=== PATIENT | female | born 1990 | race Caucasian/White ===

== ENCOUNTER 2019-04-05 07:46 | Emergency (ER) | payer MEDICAID, SELFPAY ==
[2019-04-05 07:55] VITALS: BP 128/80; PULSE 82; RESP 20; TEMP 36.8; O2SAT 99
--- NOTE | 2019-04-05 08:05 | W.ED.GENAD ---
Discharge Plan Disposition Patient Disposition: HOME Condition: Improving Discharge Details Chief Complaint: Nausea/Vomit/Diar Clinical Impression: Nausea vomiting and diarrhea Primary Care Provider: Jose Antonio Tovar ED Provider: Adeel Avila Home Meds and New Rx's Prescriptions: New promethazine 12.5 mg tablet 12.5 mg PO Q6H PRN (Reason: nausea and vomiting) Qty: 10 RF: 0 Continued medroxyprogesterone [Depo-Provera] 150 MG/1 ML suspension 150 mg IM Q 12 WEEKS Qty: 1 RF: 0 methadone 10 MG/ML concentrate 65 mg PO DAILY RF: 0 Discharge Instructions Instructions: Acute Nausea and Vomiting (ED) Additional Instructions: Continue to advance her diet as tolerated and stay well-hydrated. Return to the emergency department for any new or worsening symptoms otherwise follow-up with your primary care provider for reassessment as needed Referrals: Jose Antonio Tovar [Primary Care Provider] - (As needed for reassessment) Discharge Data Discharge Date/Time-TO BE ENTERED AT DEPARTURE: 04/05/19 10:31 Medical Decision Making <Adeel Avila NP - Last Filed: 04/07/19 16:40> Patient presenting to the emergency department for chief complaint of nausea vomiting diarrhea. Patient states that this all started around 3 AM. Patient attempted to take her methadone dose this morning and vomited it up due to her symptoms. Patient is severely anxious hyperventilating and agitated due to some extremity numbness and tingling that started with the lower extremities but through my examination and assessment she started stating her upper tremors were starting to feel the same. There is no focal motor deficits or neurological dysfunction noted, abdomen is soft with mild tenderness to the left lower quadrant, no CVA tenderness, normal active bowel sounds and otherwise unremarkable exam. Patient denies any other missed doses of methadone or additional doses and denies any other illicit medications, denies any sick contacts, denies any possible spoiled food. Plan to check labs give fluids and Phenergan. At this time given there is no peritoneal findings, abdomen is soft with only minimal tenderness left lower quadrant, I do not plan on CT imaging at this time but it is considered and will reassess abdomen prior to discharge. Pending results patient continuing to have nausea and dry heaving after Phenergan so IV Haldol was ordered and EKG ordered given patient is already on methadone to ensure no QT prolongation. Review of labs show a nonspecific leukocytosis, mildly elevated hemoglobin, normal lipase, mildly low magnesium, and slightly elevated anion gap. Patient was reassessed after 1.5 L of normal saline and Haldol. Patient states 100% improvement, no more nausea vomiting, and abdomen reassessed and showed no abdominal tenderness, normal active bowel sounds, completely benign exam. Given reassuring reassessment I do not feel that any imaging or further work-up is required. Patient was p.o. challenged and able to tolerate p.o. intake of oral magnesium, fluids, and crackers. Given this I feel that patient is able to be safely discharged but close return precautions were discussed. Patient to follow-up with primary care as needed. After discussion of diagnosis and plan of care patient has no further needs, questions, or concerns and states clear understanding to return to the emergency department for any worsening symptoms. <Km Armstrong DO - Last Filed: 04/05/19 08:44> EK Rate 62, intervals normal, sinus rhythm, inverted T wave in V1, no Q waves, no ST elevations or depressions. HPI <Adeel Avila NP - Last Filed: 04/07/19 16:40> General Mode of arrival: wheelchair. Date/Time Provider Initiated Documentation: 04/05/19 07:52. Limitations to Documentation: no limitations. Information obtained by: patient and RN notes reviewed. History of Present Illness 29 year old F presents to the emergency department with the chief complaint of Nausea vomiting diarrhea, extremity numbness and tingling, described as severe, with intensity rated at 8. Quality is described as other (Tingling), and is localized to the upper extremity and lower extremity. Patient started experiencing this hour(s) (5) and it has been constant. No relieving factors improve symptom(s), No exacerbating factors reported . Patient notes no other symptoms.. Patient did receive the following treatments prior to arrival, none Related Data Home Medications Medication Instructions Recorded Confirmed methadone 65 mg PO DAILY 06/13/14 04/05/19 medroxyprogesterone [Depo-Provera] 150 mg IM Q 12 WEEKS #1 vial 05/04/17 promethazine 12.5 mg PO Q6H PRN #10 tab 04/05/19 Previous Rx's Medication Instructions Recorded promethazine 12.5 mg PO Q6H PRN #10 tab 04/05/19 Allergies Allergy/AdvReac Type Severity Reaction Status Date / Time No Known Drug Allergies Allergy Unverified 05/22/17 15:52 General Stated Complaint: Nausea/Vomit/Diar LISA: 3 Review of Systems <Adeel Avila NP - Last Filed: 04/07/19 16:40> Constitutional Denies chills, Denies fever(s) and Reports poor appetite Cardiovascular Denies chest pain and Denies dyspnea Respiratory Denies cough and Denies dyspnea Gastrointestinal Reports as per HPI, Reports abdominal pain, Denies melena, Denies change in bowel habits, Denies constipation, Denies diarrhea, Reports nausea and Reports vomiting Genitourinary Denies hematuria, Denies urinary incontinence, Denies urinary hesitancy and Denies urinary urgency Integumentary/Breasts Denies rash PFSH <Adeel Avila NP - Last Filed: 04/07/19 16:40> Medical History Anxiety disorder Asthma Depression Genital herpes Migraine Opioid abuse Surgical History Appendectomy Tonsillectomy Family History Mother Hyperlipidemia Social History Smoking/Tobacco Use Status: Current every day Alcohol Intake: never Drug use: Current Sobriety Substance use type: former substance user Details: on methadone Do you feel safe at home: Yes Do you feel safe in your relationship?: Yes Exam <Adeel Avila NP - Last Filed: 04/07/19 16:40> Const General: cooperative and anxious Orientation: alert, awake and oriented x3 Resp Effort & Inspection: normal respiratory effort and able to speak in complete sentences Auscultation: clear to auscultation bilaterally Cardio Rate: regular rate Rhythm: regular rhythm Heart Sounds: S1 normal and S2 normal GI Palpation: soft, no hepatosplenomegaly, not firm, no guarding, no masses, no pulsatile masses, not rigid, no splenomegaly and tender (mild) in the LLQ Auscultation: normal bowel sounds Back/Spine/Pelvis Back: no CVA tenderness Neuro General: alert, awake, oriented x3, gait normal, tone normal, moves all extremities and no focal motor deficits Motor: muscle tone normal throughout Course <Adeel Avila, MULTI SENSOR OPERATOR - Last Filed: 04/07/19 16:40> Vital Signs Temperature 36.8 C 04/05/19 07:55 Pulse 82 04/05/19 07:55 Respiratory Rate 20 04/05/19 07:55 Blood Pressure 128/80 04/05/19 07:55 Pulse Oximetry 99 04/05/19 07:55 Temperature 36.8 C 04/05/19 07:55 Temperature Source Temporal Artery Scan 04/05/19 07:55 Pulse 82 04/05/19 07:55 Respiratory Rate 20 04/05/19 07:55 Respiratory Effort Non-Labored 04/05/19 07:55 Blood Pressure 128/80 04/05/19 07:55 Blood Pressure Position Sitting 04/05/19 07:55 Pulse Oximetry 99 04/05/19 07:55 Oxygen Delivery Method Room Air 04/05/19 07:55 Oxygen Flow Rate 0 04/05/19 07:55 End Tidal Co2 7 04/05/19 07:55
[2019-04-05] MEDS: Normal Saline 1,000 ML 1000 ML IV ×2 (08:14→09:39)
[2019-04-05] MEDS: Normal Saline Flush 10 ML SYR IVP (08:15)
[2019-04-05 08:26] LABS: Abs Immature Grans 0.04 k/cumm (0.0-0.09); Absolute Monocyte Count 0.73 k/cumm (0.11-0.7); Basophils % 0.1; Eosinophils % 0.3; HCT 44.9 % (36.0-46.0); HGB 15.7 g/dL (12.0-15.5); Immature Grans % 0.3; Lymphocytes % 15.5; Mean Corpuscular Hemoglobin 30.5 pg (27.0-33.0); Mean Corpuscular Volume 87.2 fL (80-95); Mean Platelet Volume 9.7 fL (8.0-11.0); Monocytes % 4.7; Neutrophils % 79.1; Platelet Count 282 x1000/uL (130-400); RBC 5.15 m/cumm (4.00-5.20); RBC Distribution Width 12.8 % (11.7-14.6); White Blood Cell Count 15.45 k/cumm (4.4-10.8)
[2019-04-05 08:28] LABS: Absolute Basophil Count 0.02 k/cumm (0.0-0.2); Absolute Eosinophil Count 0.05 k/cumm (0.0-0.7); Absolute Lymphocyte Count 2.39 k/cumm (1.2-3.4); Absolute Neutrophil Count 12.22 k/cumm (1.2-6.7)
[2019-04-05 08:31] LABS: ALT 26 U/L (12-78); AST 17 U/L (15-37); Albumin 3.9 g/dL (3.4-5.0); Alkaline Phosphatase 92 U/L (46-116); Anion Gap 12.3 mmol/L (3-11); BUN 7 mg/dL (7-18); Bilirubin, Total 0.5 mg/dL (0.2-1.0); CO2 22.7 mmol/L (21.0-32.0); CREATININE 0.98 mg/dL (0.55-1.02); Calcium 9.5 mg/dL (8.5-10.1); Chloride 102 mmol/L (98-107); Glucose 123 mg/dL (70-100); Lipase 122 U/L (73-393); Magnesium 1.6 mg/dL (1.8-2.4); Potassium 3.8 mmol/L (3.5-5.1); Sodium 137 mmol/L (136-145); Total Protein 7.8 g/dL (6.4-8.2)
[2019-04-05] MEDS: Haloperidol 5 MG/ML VIAL IM/IV (08:45)
[2019-04-05 08:51] LABS: Bilirubin Negative (Negative); Blood Negative (Negative); Clarity Clear; Glucose Negative (Negative); Ketones 40 mg/dL (Negative); Leukocyte Esterase Negative (Negative); Nitrite Negative (Negative); Specific Gravity 1.015 (1.005-1.025); Urobilinogen 0.2 EU/dL (Up TO 0.2); pH >= 9.0 (5-8)
[2019-04-05 08:57] LABS: Bacteria Few HPF (Negative); C & S Indicated? No; Casts Negative LPF (Negative); Crystals Few Amorphous HPF (Negative); Epithelial Cells Many HPF (Negative); Mucus Moderate (Negative); RBC 0-2 (0-2); WBC 0-2 HPF (0-5)
--- NOTE | 2019-04-05 09:40 | NUR.NOTE ---
Nursing Note: Patient states she feels much better, inquiring how much longer and if she needs to finish all of the fluids, encouraged to do so.
[2019-04-05] MEDS: Magnesium Oxide 400 MG TAB PO (10:02)
[2019-04-05 10:31] VITALS: BP 128/80; PULSE 82; RESP 20; TEMP 36.8; O2SAT 99
== END 2019-04-05 10:31 | disposition home or self-care (01) ==
PROVIDERS: Emergency Provider Nurse Practitioner Family; PCP Family Medicine
DX: R11.2 Nausea with vomiting, unspecified (principal); R19.7 Diarrhea, unspecified; D72.9 Disorder of white blood cells, unspecified; Z79.891 Long term (current) use of opiate analgesic
CPT/HCPCS: 36415; 80053; 83690; 93005; 96361; 96372; 96374; 99284; 81003; 81015; 83735; 85025; 93010; J1630

== ENCOUNTER 2019-05-20 11:27 | Emergency (ER) | payer MEDICAID, SELFPAY ==
[2019-05-20 11:43] VITALS: BP 138/97; PULSE 78; RESP 18; TEMP 36.6
--- NOTE | 2019-05-20 11:59 | ED.GENADUL_ITS ---
Discharge Plan Disposition Patient Disposition: HOME Condition: Improving Discharge Details Chief Complaint: Nausea/Vomit/Diar Clinical Impression: Nausea and vomiting in Primary Care Provider: Jose Antonio Tovar ED Provider: Florina Cervantes Home Meds and New Rx's Prescriptions: New promethazine 25 mg tablet 25 mg PO QID PRN (Reason: nausea and vomiting) Qty: 14 RF: 0 Continued medroxyprogesterone [Depo-Provera] 150 MG/1 ML suspension 150 mg IM Q 12 WEEKS Qty: 1 RF: 0 methadone 10 MG/ML concentrate 65 mg PO DAILY RF: 0 promethazine 12.5 mg tablet 12.5 mg PO Q6H PRN (Reason: nausea and vomiting) Qty: 10 RF: 0 Discharge Instructions Instructions: (ED), Acute Nausea and Vomiting (ED) Additional Instructions: Encourage hydration. Please take Phenergan as prescribed as needed for nausea or vomiting. Try taking this prior to taking your morning dose of methadone. Please begin a daily vitamin. Please call [facility], number listed below, to schedule first [facility] appointment. If you develop inability to stay hydrated, fever/chills, abdominal pain or other new/worsening symptoms please seek care urgently once again. Referrals: Gregoria Rand MD [ [facility] STAFF PHYSICIAN] - Discharge Data Discharge Date/Time-TO BE ENTERED AT DEPARTURE: 05/20/19 14:00 Medical Decision Making Patient is a 29-year-old female presenting today with chief complaint of opioid withdrawal and nausea/vomiting. She reports that she has had nausea vomiting for the past month. Was seen here 1 month ago at which time she was treated for nausea and vomiting. She reports that today she comes in for increased symptoms over the past 3 days and not allowing her to take her daily methadone. She reports she is been taking her 65 mg p.o. methadone each morning and then shortly after that she has been vomiting. She comes in tremulous, anxious. She is very angry and lashing out at staff. She denies any chest pain, shortness of breath. Has not had any fevers or chills. No recent travel. No recent antibiotics. No known sick contacts. She reports she is on the Depo-Provera shots does not believe that she is . Will obtain labs to evaluate for any electrolyte abnormalities. Plan for UPT. Will give Phenergan and daily methadone dose. We will rehydrate the patient. Denies marijuana usage. Contacted [facility] to let them know of dosing here. They report that patient receives 65mg PO QD Methadone, takes home 1 week at a time. UPT positive. Discussed case with Dr. Sargent who advised that continuing with Methadone and phenergan. Patient received Phenergan and methadone. Is now much more agreeable and pleasant. She seems pleased with the news of her . Has delivered one healthy child historically [facility], would like to receive care with them again. She will contact them to make follow-up appointment later this week. Unknown gestational age at this time. No findings to suggest an ectopic . She was given strict return precautions. I did advise that she take the Phenergan worsening in the morning followed by the methadone once her nausea has been up to subside. All other questions and concerns were addressed and she is in agreement this plan. HPI General Mode of arrival: ambulatory . Date/Time Provider Initiated Documentation: 05/20/19 11:29 . Limitations to Documentation: no limitations . Information obtained by: patient and RN notes reviewed . History of Present Illness 29 year old F presents to the emergency department with the chief complaint of nausea and vomiting, described as similar to prior episodes, with intensity rated at 9 (severe pain to generalized abdomen prior to emesis). Quality is described as aching, and is localized to the abdomen. Patient reports no radiation. Patient started experiencing this day(s) (3) and it has been constant. No relieving factors improve symptom(s), Eating worsens symptoms . Patient notes loss of appetite, malaise, nausea/vomiting and other (tremulous, patient reports 3 days without methadone); denies confusion, chest pain, cough, diaphoresis, fever/chills and headaches. Patient did receive the following treatments prior to arrival, none Related Data Home Medications Medication Instructions Recorded Confirmed methadone 65 mg PO DAILY 06/13/14 05/20/19 medroxyprogesterone [Depo-Provera] 150 mg IM Q 12 WEEKS #1 vial 05/04/17 05/20/19 promethazine 12.5 mg PO Q6H PRN #10 tab 04/05/19 promethazine 25 mg PO QID PRN #14 tab 05/20/19 Previous Rx's Medication Instructions Recorded promethazine 12.5 mg PO Q6H PRN #10 tab 04/05/19 promethazine 25 mg PO QID PRN #14 tab 05/20/19 Allergies Allergy/AdvReac Type Severity Reaction Status Date / Time No Known Drug Allergies Allergy Unverified 05/20/19 11:46 General Stated Complaint: Nausea/Vomit/Diar LISA: 3 Review of Systems Constitutional Reports as per HPI, Denies chills, Reports fatigue, Denies fever(s), Denies headache(s), Reports malaise and Reports poor appetite ENT Denies headache(s) Cardiovascular Reports as per HPI, Denies chest pain, Denies radiating jaw, neck or arm pain, Denies palpitations and Denies dyspnea Respiratory Reports as per HPI, Denies cough, Denies dyspnea and Denies wheezing Gastrointestinal Reports as per HPI, Denies melena, Denies change in bowel habits, Denies change in stool character, Reports nausea and Reports vomiting Genitourinary Reports as per HPI, Reports abnormal menses (reports irregular, received depo shot), Denies abnormal vaginal bleeding, Denies dysuria, Denies flank pain, Denies urinary urgency and Denies vaginal discharge Musculoskeletal Reports as per HPI, Denies back pain, Denies numbness and Denies radiating pain into limb Integumentary/Breasts Reports as per HPI and Denies rash Neurologic Reports as per HPI, Denies headache(s) and Denies numbness Endocrine Reports fatigue and Denies palpitations Allergic/Immunologic Denies wheezing PFSH Medical History Anxiety disorder Asthma Depression Genital herpes Migraine Opioid abuse Surgical History Appendectomy Tonsillectomy Social History Smoking/Tobacco Use Status: Current every day Alcohol Intake: never Drug use: Current Sobriety Substance use type: former substance user Details: on methadone Do you feel safe at home: Yes Do you feel safe in your relationship?: Yes Exam Const General: well developed, No well groomed (disheveled) and acute distress moderate (angry, yelling, shaking, anxious); not respiratory (breathing comfortably, speaking in sentences) Nutritional Appearance: average body habitus and well nourished Orientation: alert and awake [facility] Head: normal to inspection Mouth: moist mucous membranes Resp Effort & Inspection: normal respiratory effort, able to speak in complete sentences and no respiratory distress Auscultation: clear to auscultation bilaterally, no rales, no rhonchi and no wheezes Cardio Rate: regular rate Rhythm: regular rhythm Heart Sounds: S1 normal and S2 normal GI Inspection: normal to inspection and non-distended Palpation: soft, no hepatosplenomegaly, not firm, no guarding, not rigid and nontender Percussion: normal to percussion Auscultation: normal bowel sounds Back/Spine/Pelvis Back: no CVA tenderness Skin General skin exam: no rashes or lesions noted Trauma: no lacerations or abrasions Neuro General: alert and awake Cognition: normal cognition Speech: speech normal Gait: normal gait Extrem General: normal capillary refill, no pedal edema, no calf tenderness and normal gait Psych Appearance: grossly normal and well kempt Mental Status: mental status grossly normal Speech and Movement: speech and movement normal Course Vital Signs Temperature 36.6 C 05/20/19 11:43 Pulse 78 05/20/19 11:43 Respiratory Rate 18 05/20/19 11:43 Blood Pressure 138/97 H 05/20/19 11:43 Temperature 36.6 C 05/20/19 11:43 Temperature Source Skin 05/20/19 11:43 Pulse 78 05/20/19 11:43 Respiratory Rate 18 05/20/19 11:43 Blood Pressure 138/97 H 05/20/19 11:43
--- NOTE | 2019-05-20 12:39 | NUR.NOTE ---
Nursing Note: pt test positive. PA aware
[2019-05-20 12:40] LABS: Abs Immature Grans 0.03 k/cumm (0.0-0.09); Absolute Basophil Count 0.02 k/cumm (0.0-0.2); Absolute Eosinophil Count 0.05 k/cumm (0.0-0.7); Absolute Monocyte Count 1.07 k/cumm (0.11-0.7); Absolute Neutrophil Count 10.96 k/cumm (1.2-6.7); Basophils % 0.1; Eosinophils % 0.3; HCT 43.2 % (36.0-46.0); HGB 15.1 g/dL (12.0-15.5); Immature Grans % 0.2; Lymphocytes % 20.9; Mean Corpuscular Hemoglobin 30.6 pg (27.0-33.0); Mean Corpuscular Volume 87.4 fL (80-95); Mean Platelet Volume 9.8 fL (8.0-11.0); Neutrophils % 71.5; Platelet Count 286 x1000/uL (130-400); RBC 4.94 m/cumm (4.00-5.20); White Blood Cell Count 15.33 k/cumm (4.4-10.8)
[2019-05-20] MEDS: Normal Saline 1,000 ML 1000 ML IV (12:41)
[2019-05-20 12:55] LABS: ALT 25 U/L (12-78); AST 11 U/L (15-37); Alkaline Phosphatase 85 U/L (46-116); Anion Gap 10.3 mmol/L (3-11); BUN 10 mg/dL (7-18); Bilirubin, Total 0.4 mg/dL (0.2-1.0); CO2 25.7 mmol/L (21.0-32.0); CREATININE 0.69 mg/dL (0.55-1.02); Calcium 9.4 mg/dL (8.5-10.1); Chloride 102 mmol/L (98-107); Glucose 101 mg/dL (70-100); Potassium 3.6 mmol/L (3.5-5.1); Sodium 138 mmol/L (136-145); Total Protein 8.2 g/dL (6.4-8.2)
--- NOTE | 2019-05-20 13:04 | NUR.NOTE ---
Nursing Note: phenergan and methadone approved by [facility]
[2019-05-20] MEDS: Methadone Liquid 10 MG/ML 65 MG PO (13:10)
[2019-05-20 13:12] LABS: Bilirubin Negative (Negative); Blood Trace-intact (Negative); Clarity Clear (Clear); Glucose Negative (Negative); Ketones 40 mg/dL (Negative); Leukocyte Esterase Negative (Negative); Nitrite Negative (Negative)
--- NOTE | 2019-05-20 13:13 | NUR.NOTE ---
Nursing Note: pt states that her nausea has improved to a level that she can take her methadone. Pt given methadone and provided yajaira demetria and saltines.
[2019-05-20 13:26] LABS: Bacteria Negative HPF (Negative); C & S Indicated? No/Sq. Contamination; Casts Negative LPF (Negative); Crystals Negative HPF (Negative); Epithelial Cells Many HPF (Negative); Mucus Negative (Negative); Other Cells Negative (Negative); WBC 0-2 HPF (0-5)
== END 2019-05-20 14:00 | disposition home or self-care (01) ==
PROVIDERS: Emergency Provider Physician Assistant; PCP Family Medicine
DX: O21.9 Vomiting of pregnancy, unspecified (principal); Z3A.00 Weeks of gestation of pregnancy not specified; O99.330 Smoking (tobacco) complicating pregnancy, unspecified trimester; O99.320 Drug use complicating pregnancy, unspecified trimester; F11.23 Opioid dependence with withdrawal
CPT/HCPCS: 80053; 96361; 96365; 99284; 81003; 81015; 85025

== ENCOUNTER 2019-06-12 17:23 | Outpatient (REF) | payer MEDICAID, SELFPAY ==
[2019-06-12 17:53] LABS: *AMPHETAMINES SCREEN URINE Negative (Negative); *BARBITURATES SCREEN URINE Negative (Negative); *BENZODIAZEPINES SCREEN URINE Negative (Negative); Cannabinoids THC POSITIVE (Negative); Cocaine Screen,Urine Negative (Negative); METHADONE URINE SCREEN POSITIVE (Negative); OPIATES URINE SCREEN Negative (Negative)
[2019-06-12 18:07] LABS: Tricyclic Antidepressants Negative (Negative)
[2019-06-14 12:59] LABS: Chlamydia Result Negative; GC Result Negative; Specimen Description CERVIX
[2019-06-16 12:30] LABS: Buprenorphine Negative; Norbuprenorphine Negative
== END 2019-06-12 17:43 ==
LOC: LBN 17:23
PROVIDERS: PCP Family Medicine; Visit Provider Advanced Practice Midwife
DX: Z34.91 Encounter for supervision of normal pregnancy, unspecified, first trimester (principal)
CPT/HCPCS: 80307; 87491; 87591; 87086

== ENCOUNTER 2019-06-13 15:54 | Outpatient (CLI) | payer MEDICAID, SELFPAY ==
[2019-06-13 16:14] LABS: Abs Immature Grans 0.03 k/cumm (0.0-0.09); Absolute Eosinophil Count 0.09 k/cumm (0.0-0.7); Absolute Monocyte Count 1.06 k/cumm (0.11-0.7); Basophils % 0.1; Eosinophils % 0.6; HCT 37.6 % (36.0-46.0); Immature Grans % 0.2; Lymphocytes % 21.9; Mean Corp. HGB Concentration 34.6 g/dL (32.0-36.0); Mean Corpuscular Hemoglobin 30.7 pg (27.0-33.0); Mean Corpuscular Volume 88.7 fL (80-95); Mean Platelet Volume 9.7 fL (8.0-11.0); Monocytes % 6.8; Neutrophils % 70.4; Platelet Count 262 x1000/uL (130-400); RBC 4.24 m/cumm (4.00-5.20); RBC Distribution Width 12.7 % (11.7-14.6)
[2019-06-13 16:15] LABS: Absolute Basophil Count 0.02 k/cumm (0.0-0.2); Absolute Lymphocyte Count 3.42 k/cumm (1.2-3.4); Absolute Neutrophil Count 10.98 k/cumm (1.2-6.7)
[2019-06-15 11:13] LABS: HIV-1/2 Ag & Ab Screen Negative (NEGAT)
[2019-06-17 11:16] LABS: Varicella IgG Antibody Positive
[2019-06-17 11:20] LABS: Rubella IgG Ab (UVM) Positive
[2019-06-17 11:23] LABS: Hepatitis B Surface Ag Negative (NEGAT)
[2019-06-17 11:35] LABS: Hepatitis C Ab w Rflx HCV PCR Negative (NEGAT)
[2019-06-17 11:48] LABS: Syphilis Serology (RPR) Negative (Negative)
== END 2019-06-13 16:14 ==
PROVIDERS: PCP Family Medicine; Visit Provider Advanced Practice Midwife
DX: Z34.91 Encounter for supervision of normal pregnancy, unspecified, first trimester (principal); Z11.4 Encounter for screening for human immunodeficiency virus [HIV]; Z11.59 Encounter for screening for other viral diseases; Z01.84 Encounter for antibody response examination
CPT/HCPCS: 36415; 80055; 86787; 86803; 86850; 86900; 86901; 87340; 87389; 86592; 86762

== ENCOUNTER 2019-06-20 07:33 | Emergency (ER) | payer MEDICAID, SELFPAY ==
[2019-06-20 07:40] VITALS: BP 131/67; PULSE 92; RESP 18; TEMP 36.6; O2SAT 98
--- NOTE | 2019-06-20 07:52 | ED.GENADUL_ITS ---
Discharge Plan Disposition Patient Disposition: HOME Condition: Stable Discharge Details Chief Complaint: Nausea/Vomit/Diar Clinical Impression: Hyperemesis gravidarum Primary Care Provider: Qing Wu ED Provider: Jakob Jack Home Meds and New Rx's Prescriptions: New ondansetron 8 mg tablet,disintegrating 8 mg PO Q8H PRN (Reason: nausea and vomiting) Qty: 30 RF: 0 Continued PrePlus 27 mg iron- 1 mg tablet 1 tab PO DAILY Qty: 90 RF: 6 methadone 10 MG/ML concentrate 65 mg PO DAILY RF: 0 Discontinued ondansetron HCl [Zofran] 8 mg tablet 8 mg PO Q8H Qty: 21 RF: 6 Discharge Instructions Instructions: Hyperemesis Gravidarum (ED) Additional Instructions: follow up with your obgyn provider within 1-2 weeks if you have persistent vomit or severe abdominal pain return to the emergency department Medical Decision Making 29 yo female at 11 weeks per pt comes in with n/v since yesterday and has been having issues with n/v throughout this . Has zofran at home prescribed by her OBGYN per pt but not dissolvable so has thrown up after taking it immediately. Denies fevers, abd pain. She is in no distress on exam speaking in full sentences. She has no abdominal tenderness on exam so doubt surgical pathology at this time. I suspect hyperemesis gravdiarum. Will give IVF and IV ondansetron and reassess. pt now tolerating po and feels much better, will d/c with dissolvable zofran given degree of symptoms and return precautions given Differential Diagnosis hyperemesis gravidarum, gastroenteritis Medical Records Medical records reviewed: Yes I reviewed the patient's medical records. Lab Data Lab results reviewed: Yes I reviewed the patient's lab results. HPI General Mode of arrival: ambulatory . Date/Time Provider Initiated Documentation: 06/20/19 07:48 . Limitations to Documentation: no limitations . Information obtained by: patient . History of Present Illness 29 year old F presents to the emergency department with the chief complaint of nausea and vomit, described as moderate, Patient started experiencing this day(s) (1) and it has been constant. No relieving factors improve symptom(s), No exacerbating factors reported . Patient notes no other symptoms.. Patient did receive the following treatments prior to arrival, none Related Data Home Medications Medication Instructions Recorded Confirmed methadone 65 mg PO DAILY 06/13/14 06/20/19 vitamin with calcium 1 tab PO DAILY #90 tab 05/21/19 06/20/19 no.72-iron 27 mg-folic acid 1 mg tablet ondansetron 8 mg PO Q8H PRN #30 tab 06/20/19 Previous Rx's Medication Instructions Recorded vitamin with calcium 1 tab PO DAILY #90 tab 05/21/19 no.72-iron 27 mg-folic acid 1 mg tablet ondansetron 8 mg PO Q8H PRN #30 tab 06/20/19 Allergies Allergy/AdvReac Type Severity Reaction Status Date / Time No Known Drug Allergies Allergy Unverified 06/20/19 07:44 General Stated Complaint: Nausea/Vomit/Diar LISA: 3 Review of Systems Review of Systems All systems reviewed & are unremarkable except as noted in HPI and below Constitutional Denies chills, Denies fever(s) and Denies weakness Cardiovascular Denies chest pain and Denies dyspnea Respiratory Denies cough and Denies dyspnea Gastrointestinal Denies abdominal pain Genitourinary Denies dysuria Neurologic Denies weakness [facility] Medical History (Updated 06/12/19 @ 15:32 by Noris Bro CNM) Anxiety disorder ASCUS (atypical squamous cells of undetermined significance) on gynecologic Papanicolaou smear complicating , antepartum (Acute) Asthma Depression Genital herpes Migraine Opioid abuse (Resolved) now on methadone Surgical History Appendectomy Tonsillectomy Social History Smoking/Tobacco Use Status: Current every day Alcohol Intake: never Drug use: Current Sobriety Substance use type: former substance user Details: on methadone Do you feel safe at home: Yes Do you feel safe in your relationship?: Yes History History 2 Para 1 Hx # Term Pregnancies Multiple births Hx # Pregnancies Ectopic pregnancies AB induced Hx Number of Living Children AB spontaneous Past Pregnancies Del. Date GA/Weeks # Outcome Route Wgt Sex Labor Lgth Anesthes ia Location Prov Complic 08/06/09 37 Successful vaginal 2.013 kg Female [facility] Delivery Date: 08/06/09 On 06/12/19 @ 15:51 Noris Bro IOL for oligohydramnios, SGA baby Exam Const General: no acute distress Orientation: alert HENMT Head: normal to inspection Ears: external ears normal General nose exam: external nose normal Mouth: moist mucous membranes Eyes General: appearance normal, both eyes and all related structures Neck Neck: normal visual inspection Resp Effort & Inspection: normal respiratory effort and able to speak in complete sentences Cardio Rate: regular rate GI Palpation: soft Skin General skin exam: no rashes or lesions noted Neuro General: alert and oriented x3 Extrem General: normal to inspection Psych Mental Status: mental status grossly normal Course Vital Signs Temperature 36.6 C 06/20/19 07:40 Pulse 92 H 06/20/19 07:40 Respiratory Rate 18 06/20/19 07:40 Blood Pressure 131/67 06/20/19 07:40 Pulse Oximetry 98 06/20/19 07:40 Temperature 36.6 C 06/20/19 07:40 Temperature Source Temporal Artery Scan 06/20/19 07:40 Pulse 92 H 06/20/19 07:40 Respiratory Rate 18 06/20/19 07:40 Respiratory Effort Non-Labored 06/20/19 07:43 Blood Pressure 131/67 06/20/19 07:40 Blood Pressure Position Supine 06/20/19 07:40 Pulse Oximetry 98 06/20/19 07:40 Oxygen Delivery Method Room Air 06/20/19 07:40 Oxygen Flow Rate 0 06/20/19 07:40 Pain Level 0 06/20/19 07:40
[2019-06-20] MEDS: Normal Saline 1,000 ML 1000 ML IV (08:03)
[2019-06-20] MEDS: Ondansetron 4 MG/2 ML VIAL IVP (08:03)
[2019-06-20 08:20] LABS: Abs Immature Grans 0.04 k/cumm (0.0-0.09); Absolute Basophil Count 0.01 k/cumm (0.0-0.2); Absolute Eosinophil Count 0.03 k/cumm (0.0-0.7); Absolute Lymphocyte Count 2.23 k/cumm (1.2-3.4); Absolute Monocyte Count 0.58 k/cumm (0.11-0.7); Basophils % 0.1; Eosinophils % 0.3; HGB 13.3 g/dL (12.0-15.5); Immature Grans % 0.4; Lymphocytes % 21.7; Mean Corpuscular Hemoglobin 30.7 pg (27.0-33.0); Mean Corpuscular Volume 87.8 fL (80-95); Monocytes % 5.6; Neutrophils % 71.9; Platelet Count 254 x1000/uL (130-400); RBC 4.33 m/cumm (4.00-5.20); RBC Distribution Width 12.5 % (11.7-14.6); White Blood Cell Count 10.29 k/cumm (4.4-10.8)
[2019-06-20 08:36] LABS: ALT 21 U/L (14-59); AST 13 U/L (15-37); Albumin 3.5 g/dL (3.4-5.0); Alkaline Phosphatase 84 U/L (46-116); Anion Gap 11.7 mmol/L (3-11); BUN 8 mg/dL (7-18); Bilirubin, Total 0.4 mg/dL (0.2-1.0); CO2 23.3 mmol/L (21.0-32.0); CREATININE 0.63 mg/dL (0.55-1.02); Calcium 8.7 mg/dL (8.5-10.1); Chloride 102 mmol/L (98-107); Glucose 99 mg/dL (70-100); Potassium 3.3 mmol/L (3.5-5.1); Sodium 137 mmol/L (136-145); Total Protein 7.4 g/dL (6.4-8.2)
[2019-06-20 09:22] VITALS: BP 124/72; PULSE 88; RESP 16; O2SAT 98
== END 2019-06-20 09:24 | disposition home or self-care (01) ==
PROVIDERS: Emergency Provider Emergency Medicine; PCP Family Medicine
DX: O21.0 Mild hyperemesis gravidarum (principal); Z3A.11 11 weeks gestation of pregnancy; O99.332 Smoking (tobacco) complicating pregnancy, second trimester; F17.210 Nicotine dependence, cigarettes, uncomplicated
CPT/HCPCS: 36415; 80053; 96361; 96374; 99284; 85025; J2405; J3490

== ENCOUNTER 2019-07-17 08:29 | Outpatient (CLI) | payer MEDICAID, SELFPAY ==
[2019-07-17 08:53] LABS: Kit/Specimen SENT
== END 2019-07-17 08:49 ==
PROVIDERS: PCP Family Medicine; Visit Provider Obstetrics & Gynecology
DX: Z34.91 Encounter for supervision of normal pregnancy, unspecified, first trimester (principal); Z36.89 Encounter for other specified antenatal screening
CPT/HCPCS: 36415

== ENCOUNTER 2019-08-21 01:12 | Outpatient (CLI) | payer MEDICAID, SELFPAY ==
--- NOTE | 2019-08-21 13:55 | DI.US_ITS ---
EXAM: US OB 2-3 TRIMESTER CLINICAL HISTORY: Z34.90 TECHNIQUE: Ultrasound performed using standard protocol. COMPARISON: No exams were available for comparison FINDINGS: The fetus was in variable position during the exam. The placenta is anterior and low lying. The ti p of the placenta measures 1.6 cm from the internal os. The biometric measurements correspond to 19 weeks 2 days. The estimated weight is 287 grams, corresponding to the 4th percentile. The fet al stomach was not well seen. The amniotic fluid amount appears visually normal. IMPRESSION: Low-lying placenta. size and weight is at the low normal range. stomach is not well seen. A follow-up exam could be considered.
== END 2019-08-21 01:32 ==
PROVIDERS: PCP Family Medicine; Visit Provider Obstetrics & Gynecology
DX: O44.42 Low lying placenta NOS or without hemorrhage, second trimester (principal)
CPT/HCPCS: 76805

== ENCOUNTER 2019-09-13 11:51 | Outpatient (REF) | payer MEDICAID, SELFPAY ==
[2019-09-13 13:18] LABS: *AMPHETAMINES SCREEN URINE Negative (Negative); *BARBITURATES SCREEN URINE Negative (Negative); *BENZODIAZEPINES SCREEN URINE Negative (Negative); Cannabinoids THC POSITIVE (Negative); Cocaine Screen,Urine Negative (Negative); METHADONE URINE SCREEN POSITIVE (Negative); OPIATES URINE SCREEN Negative (Negative)
[2019-09-13 13:26] LABS: Tricyclic Antidepressants POSITIVE (Negative)
== END 2019-09-13 12:11 ==
LOC: LBN 11:51
PROVIDERS: PCP Family Medicine; Visit Provider Obstetrics & Gynecology
DX: Z34.92 Encounter for supervision of normal pregnancy, unspecified, second trimester (principal)
CPT/HCPCS: 80307

== ENCOUNTER 2019-10-21 00:27 | Outpatient (CLI) | payer MEDICAID, SELFPAY ==
[2019-10-21 09:56] LABS: Glucose,1 Hr (Glucola) 98 mg/dL (80-140)
--- NOTE | 2019-10-21 10:02 | DI.US_ITS ---
EXAM: US OB MARY WEIGHT CLINICAL HISTORY: Reevaluate placenta location. SGA O44.20 TECHNIQUE: Ultrasound performed using standard protocol. COMPARISON: US OB 2-3 TRIMESTER from 08/21/2019 FINDINGS: There is a single intrauterine gestation. The fetus is in cephalic presentation. heart rate i s 143 beats per minute. Amniotic fluid appears normal visually. The placenta is anterior. The placental tip is 2.8 centimeters from the internal os.
[2019-10-21 10:19] LABS: Abs Immature Grans 0.05 k/cumm (0.0-0.09); Absolute Basophil Count 0.01 k/cumm (0.0-0.2); Absolute Eosinophil Count 0.07 k/cumm (0.0-0.7); Absolute Lymphocyte Count 2.46 k/cumm (1.2-3.4); Absolute Monocyte Count 1.15 k/cumm (0.11-0.7); Absolute Neutrophil Count 7.86 k/cumm (1.2-6.7); Basophils % 0.1; Eosinophils % 0.6; HCT 35.6 % (36.0-46.0); Immature Grans % 0.4; Lymphocytes % 21.2; Mean Corp. HGB Concentration 33.7 g/dL (32.0-36.0); Mean Corpuscular Hemoglobin 31.1 pg (27.0-33.0); Mean Corpuscular Volume 92.2 fL (80-95); Mean Platelet Volume 10.4 fL (8.0-11.0); Monocytes % 9.9; Neutrophils % 67.8; Platelet Count 246 x1000/uL (130-400); RBC 3.86 m/cumm (4.00-5.20); RBC Distribution Width 12.9 % (11.7-14.6); White Blood Cell Count 11.59 k/cumm (4.4-10.8)
== END 2019-10-21 00:47 ==
PROVIDERS: PCP Family Medicine; Visit Provider Obstetrics & Gynecology
DX: O44.23 Partial placenta previa NOS or without hemorrhage, third trimester (principal)
CPT/HCPCS: 36415; 76816; 82950; 85025

== ENCOUNTER 2019-12-06 03:48 | Outpatient (CLI) | payer MEDICAID, SELFPAY ==
--- NOTE | 2019-12-06 13:00 | DI.US_ITS ---
EXAM: US OB MARY WE[facility] CLINICAL HISTORY: History of IUGR Z87.59 HX OF COMPLICATIONS OF , CHILDBIRTH, TECHNIQUE: Ultrasound performed using standard protocol. COMPARISON: US OB MARY WEIGHT from 10/21/2019 FINDINGS: There is a single living intrauterine gestation. The estimated sonographic age is 30 weeks 5 days. The patient has an estimated gestational age of 35 weeks 6 days. The fetus is in the cephalic presentation. heart rate is 131 beats per minute. A complete fet al anatomic evaluation was not performed at this time. Estimated weight is 1736 grams which is below the 1st percentile. Amniotic fluid index is 9.7 cm. Visually amniotic fluid appears at the lower limits of normal. Umbilical artery evaluation was not performed at this time. Placenta is anterior. IMPRESSION: Single living intrauterine gestation. The estimated sonographic age is 30 weeks 5 days. This is 5 w eeks behind the patient's estimated gestational age of 35 weeks 6 days. Estimated weight is below the 1st percentile.
== END 2019-12-06 04:08 ==
PROVIDERS: PCP Family Medicine; Visit Provider Obstetrics & Gynecology
DX: Z87.59 Personal history of other complications of pregnancy, childbirth and the puerperium (principal); Z34.93 Encounter for supervision of normal pregnancy, unspecified, third trimester; Z3A.30 30 weeks gestation of pregnancy
CPT/HCPCS: 76816

== ENCOUNTER 2019-12-06 14:24 | Outpatient (CLI) | payer MEDICAID, SELFPAY ==
[2019-12-06] MEDS: Betamet Acet/Betamet Na Ph Inj. 30 MG/5 ML 12 MG IM (15:25)
== END 2019-12-06 14:44 ==
PROVIDERS: PCP Family Medicine; Visit Provider Obstetrics & Gynecology Gynecology
DX: O24.414 Gestational diabetes mellitus in pregnancy, insulin controlled (principal); Z79.4 Long term (current) use of insulin; Z3A.35 35 weeks gestation of pregnancy
CPT/HCPCS: 96372; J0702

== ENCOUNTER 2019-12-06 14:56 | Outpatient (REF) | payer MEDICAID, SELFPAY ==
[2019-12-06 17:06] LABS: *AMPHETAMINES SCREEN URINE Negative (Negative); *BARBITURATES SCREEN URINE Negative (Negative); *BENZODIAZEPINES SCREEN URINE Negative (Negative); Cannabinoids THC POSITIVE (Negative); Cocaine Screen,Urine Negative (Negative); METHADONE URINE SCREEN POSITIVE (Negative); OPIATES URINE SCREEN Negative (Negative)
[2019-12-06 17:08] LABS: Tricyclic Antidepressants Negative (Negative)
[2019-12-11 10:27] LABS: Buprenorphine Negative
== END 2019-12-06 15:16 ==
LOC: LBN 14:56
PROVIDERS: PCP Family Medicine; Visit Provider Obstetrics & Gynecology Gynecology
DX: Z34.93 Encounter for supervision of normal pregnancy, unspecified, third trimester (principal); Z36.85 Encounter for antenatal screening for Streptococcus B
CPT/HCPCS: 80307; 87081

== ENCOUNTER 2019-12-07 08:57 | Outpatient (CLI) | payer MEDICAID, SELFPAY ==
[2019-12-07] MEDS: Betamet Acet/Betamet Na Ph Inj. 30 MG/5 ML 12 MG IM (16:09)
== END 2019-12-07 09:17 ==
PROVIDERS: PCP Family Medicine; Visit Provider Obstetrics & Gynecology Gynecology
DX: O26.843 Uterine size-date discrepancy, third trimester (principal); Z3A.36 36 weeks gestation of pregnancy
CPT/HCPCS: 96372; 59025; J0702

== ENCOUNTER 2019-12-10 09:50 | Outpatient (CLI) | payer MEDICAID, SELFPAY | END 2019-12-10 10:10 | PROVIDERS: PCP Family Medicine; Referring Provider Obstetrics & Gynecology Gynecology; Visit Provider Obstetrics & Gynecology Gynecology | DX: O26.893 Other specified pregnancy related conditions, third trimester (principal); Z3A.36 36 weeks gestation of pregnancy | CPT/HCPCS: 59025 ==

== ENCOUNTER 2019-12-13 07:15 | Outpatient (CLI) | payer MEDICAID, SELFPAY | END 2019-12-13 07:35 | PROVIDERS: PCP Family Medicine; Visit Provider Obstetrics & Gynecology | DX: O36.5930 Maternal care for other known or suspected poor fetal growth, third trimester, not applicable or unspecified (principal); Z3A.36 36 weeks gestation of pregnancy; O26.893 Other specified pregnancy related conditions, third trimester | CPT/HCPCS: 59025 ==

== ENCOUNTER 2019-12-14 08:00 | Inpatient (IN) | payer MEDICAID, SELFPAY ==
[2019-12-14 09:58] LABS: HCT 38.3 % (36.0-46.0); HGB 13.3 g/dL (12.0-15.5); Mean Corp. HGB Concentration 34.7 g/dL (32.0-36.0); Mean Corpuscular Volume 92.3 fL (80-95); Mean Platelet Volume 10.1 fL (8.0-11.0); Platelet Count 265 x1000/uL (130-400); RBC 4.15 m/cumm (4.00-5.20); RBC Distribution Width 13.8 % (11.7-14.6); White Blood Cell Count 14.15 k/cumm (4.4-10.8)
[2019-12-14] MEDS: Lactated Ringers 1,000 ML 125 ML IV (10:40)
--- NOTE | 2019-12-14 10:51 | HPE_ITS ---
Date of service: 12/14/19 Time of Service: 10:52 Assessment and Plan Assessment and plan (1) IUGR (intrauterine growth restriction): Status: Acute Assessment and plan: cervix is 1/50 0 station. gbs neg, AROM with clear fluid and fse applied. I reviewed the risks and goals of induction, including RDS and need for ventilation. Also reviewed the risks of expectant management including still . I did discuss the situation with peds at well. History of Present Illness History of Present Illness Chief Complaint: patient here for IOL for IUGR. efw <1 percent [facility] Medical History (Updated 12/14/19 @ 10:54 by Chadwick Sarkar MD) Anxiety disorder ASCUS (atypical squamous cells of undetermined significance) on gynecologic Papanicolaou smear complicating , antepartum (Acute) Asthma Depression Genital herpes Migraine Opioid abuse (Resolved) now on methadone Surgical History Appendectomy Tonsillectomy Social History Smoking/Tobacco Use Status: Current every day Alcohol Intake: never Drug use: Current Sobriety Substance use type: former substance user Details: on methadone Do you feel safe at home: Yes Do you feel safe in your relationship?: Yes History History 2 Para 1 Hx # Term Pregnancies Multiple births Hx # Pregnancies Ectopic pregnancies AB induced Hx Number of Living Children AB spontaneous Past Pregnancies Del. Date GA/Weeks # Outcome Route Wgt Sex Labor Lgth Anesthes ia Location [facility] 08/06/09 37 Successful vaginal 4 lb 7 oz Female [facility] Viraj Segundo Delivery Date: 08/06/09 On 06/12/19 @ 15:51 Noris Bro IOL for oligohydramnios, SGA baby Meds Home Medications and Allergies Home Medications Medication Instructions Recorded Confirmed Type methadone 65 mg PO DAILY 06/13/14 12/14/19 History vitamin with calcium 1 tab PO DAILY #90 tab 05/21/19 12/14/19 Rx no.72-iron 27 mg-folic acid 1 mg tablet pantoprazole 20 mg tablet,delayed 20 mg PO DAILY #30 tab 09/13/19 12/14/19 Rx release ondansetron 8 mg disintegrating 8 mg PO Q8H PRN #30 tab 11/04/19 12/14/19 Rx tablet valacyclovir 500 mg tablet 500 mg PO DAILY #30 tab 11/21/19 12/14/19 Rx Allergies Allergy/AdvReac Type Severity Reaction Status Date / Time No Known Drug Allergies Allergy Verified 11/25/19 13:45 Results Labs Result diagrams: 12/14/19 09:48 Labs: Laboratory Results - last 24 hr 12/14/19 09:48 WBC 14.15 H RBC 4.15 Hgb 13.3 Hct 38.3 MCV 92.3 MCH 32.0 MCHC 34.7 RDW 13.8 Plt Count 265 MPV 10.1
--- NOTE | 2019-12-14 12:36 | HPE_ITS ---
Date of service: 12/14/19 Time of Service: 12:36 Assessment and Plan Assessment and plan (1) Non-reassuring electronic monitoring tracing: Status: Acute Assessment and plan: The patient has nonreassuring heart tones in the setting of IUGR and smoking. The initial strip was a category 1 heart tones. I did go ahead and perform artificial rupture membranes with a moderate amount of clear fluid. As soon as Pitocin was started there was a variable deceleration, once but does get up to 4 milliunits/min there was a late deceleration and decreased short-term variability. I did turn the Pitocin off and applied O2 and unfortunately there is still a subtle decelerations and decreased short-term variability. I did do scalp stimulation and there was not an acceleration with that. Because of this I did tell the patient I am concerned about there being a lack of reserve in this baby with severe IUGR. The safest course of action for the baby would be to perform a primary low transverse section. Carefully reviewed the risk of the procedure including bleeding, infection, damage of the tissue such as bowel, bladder, blood vessels. Also talked about risk of DVT as well. The patient did want to have a tubal so we will go ahead and do a bilateral partial salpingectomy at the time of the section. Patient understands that most of the tube will be removed and she will be unable to get without in vitro fertilization. She definitely wants her tubes tied and understands this. I feel she is good understanding risk goals alternatives of the procedure I did call anesthesia, the crew, and will proceed as soon as possible. Currently the heart tones are category 2 without any decelerations. History of Present Illness History of Present Illness Chief Complaint: Patient is here for induction of labor at 37 weeks because of severe IUGR w [facility] Medical History (Updated 12/14/19 @ 12:39 by Chadwick Sarkar MD) Anxiety disorder ASCUS (atypical squamous cells of undetermined significance) on gynecologic Papanicolaou smear complicating , antepartum (Acute) Asthma Depression Genital herpes Migraine Opioid abuse (Resolved) now on methadone Surgical History Appendectomy Tonsillectomy Social History Smoking/Tobacco Use Status: Current every day Alcohol Intake: never Drug use: Current Sobriety Substance use type: former substance user Details: on methadone Do you feel safe at home: Yes Do you feel safe in your relationship?: Yes History History 2 Para 1 Hx # Term Pregnancies Multiple births Hx # Pregnancies Ectopic pregnancies AB induced Hx Number of Living Children AB spontaneous Past Pregnancies Del. Date GA/Weeks # Outcome Route Wgt Sex Labor Lgth Anesthes ia Location Prov [facility] 08/06/09 37 Successful vaginal 4 lb 7 oz Female regional Viraj Segundo Delivery Date: 08/06/09 On 06/12/19 @ 15:51 Noris Bro IOL for oligohydramnios, SGA baby Meds Home Medications and Allergies Home Medications Medication Instructions Recorded Confirmed Type methadone 65 mg PO DAILY 06/13/14 12/14/19 History vitamin with calcium 1 tab PO DAILY #90 tab 05/21/19 12/14/19 Rx no.72-iron 27 mg-folic acid 1 mg tablet pantoprazole 20 mg tablet,delayed 20 mg PO DAILY #30 tab 09/13/19 12/14/19 Rx release ondansetron 8 mg disintegrating 8 mg PO Q8H PRN #30 tab 11/04/19 12/14/19 Rx tablet valacyclovir 500 mg tablet 500 mg PO DAILY #30 tab 11/21/19 12/14/19 Rx Allergies Allergy/AdvReac Type Severity Reaction Status Date / Time No Known Drug Allergies Allergy Verified 11/25/19 13:45 Exam Const General: cooperative, comfortable, well developed and not in acute distress Nutritional Appearance: average body habitus Orientation: alert, awake and oriented x3 Chest Other: Respiratory rate is 14, the patient does have some scattered wheezing in the upper lung garcia. No rales no rhonchi and overall is moving air well. She does have a history of asthma, is a smoker and does have cats I think this is contributing to this. Cardio Jugular venous pressure: no JVD Rate: regular rate Rhythm: regular rhythm Other: The cervix is 2 cm 75% +1 vertex presentation. There is clear amniotic fluid present. Results Labs Result diagrams: 12/14/19 09:48 Labs: Laboratory Results - last 24 hr 12/14/19 12/14/19 09:48 09:48 WBC 14.15 H RBC 4.15 Hgb 13.3 Hct 38.3 MCV 92.3 MCH 32.0 MCHC 34.7 RDW 13.8 Plt Count 265 MPV 10.1 Patient ABO/Rh B Positive Antibody Screen Negative
[2019-12-14] MEDS: Sodium Citrate 30 ML CUP PO (12:43)
--- NOTE | 2019-12-14 13:35 | PLAC_PTH ---
PATIENT: Sade Madden LOC: OBS U#:[id number] AGE/SX: 29/F ROOM: OBS.304 RE12/14/[address]: Chadwick Sarkar MD : [id number] BED: A DIS: 12/16/2019 SPEC #: [id number] RECD: 12/16/19 12:22 STATUS: FERNANDO REQ #: [id number] MICHELLE: 12/14/19 13:[address]: Chadwick Sarkar DEPT: Surgical Specimen RECD BY: Stephanie Lemons ENTERED: 12/16/19 12:26 SP TYPE: PLAC OTHR DR: Qing Wu Tissues: 1 - PLACENTA (3RD TRIMESTER) 2 - FALLOPIAN TUBE (STERILIZATION) Procedures: GROSS AND MICRO LEVEL 2 GROSS AND MICRO LEVEL 5 Comments: [id number]
[2019-12-14] MEDS: oxyCODONE 5 mg/Acetaminophen 325 mg TAB PO ×2 (16:08→22:20)
[2019-12-14] MEDS: HYDROmorphone 2 MG/ML VIAL IVP (18:17)
[2019-12-14] MEDS: Ketorolac 30 MG/ML VIAL IVP (20:01)
[2019-12-15] MEDS: Lactated Ringers 1,000 ML 50 ML IV (01:57)
[2019-12-15] MEDS: Ketorolac 30 MG/ML VIAL IVP ×2 (01:57→07:57)
[2019-12-15] MEDS: oxyCODONE 5 mg/Acetaminophen 325 mg TAB PO (04:35)
[2019-12-15 07:00] LABS: HCT 32.8 % (36.0-46.0); HGB 11.2 g/dL (12.0-15.5); Mean Corp. HGB Concentration 34.1 g/dL (32.0-36.0); Mean Corpuscular Hemoglobin 31.7 pg (27.0-33.0); Mean Corpuscular Volume 92.9 fL (80-95); Mean Platelet Volume 10.3 fL (8.0-11.0); Platelet Count 227 x1000/uL (130-400); RBC 3.53 m/cumm (4.00-5.20); RBC Distribution Width 13.9 % (11.7-14.6); White Blood Cell Count 19.76 k/cumm (4.4-10.8)
[2019-12-15] MEDS: Methadone Liquid 10 MG/ML 65 MG PO (07:53)
--- NOTE | 2019-12-15 11:21 | W.PM.PROGNOT ---
Date of Service Date of service: 12/15/19 Time of Service: 11:21 Assessment and Plan Assessment and plan (1) Post-operative state: Status: Acute Assessment and plan: The patient is doing well on postop day #1. Her catheter has been removed and she is ambulating well with minimal bleeding. Reviewed the events from her previous surgery yesterday and she is very happy with the outcome. She is currently on her methadone and a nicotine inhaler and I did talk to her about the importance of smoking cessation especially given the fact that she is asthmatic. Subjective Subjective Patient reports: no new complaints, feels better, pain is less and tolerating a regular diet Interval history since last seen: The patient is ambulating well, and has been up to the shower. Exam Narrative Exam Narrative: The patient is alert, no acute distress Incision is healing well without any evidence of erythema, drainage, or induration. The lower extremities appear normal as well. Objective Objective Clinical Data: Abnormal lab results 12/15/19 Range/Units 06:47 WBC 19.76 H D (4.4-10.8) k/cumm RBC 3.53 L (4.00-5.20) m/cumm Hgb 11.2 L D (12.0-15.5) g/dL Hct 32.8 L (36.0-46.0) % Vital Signs Pain Level 6 12/15/19 07:57 Intake & Output 12/14/19 12/14/19 12/15/19 11:59 23:59 11:59 Intake Total 2196.65 / 2196.65 Output Total 600 / 600 Balance 1596.65 / 1596.65 Intake: IV 2196.65 / 2196.65 Output: Estimated Blood Loss 600 / 600 Laboratory Results WBC 19.76 k/cumm (4.4-10.8) H D 12/15/19 06:47 RBC 3.53 m/cumm (4.00-5.20) L 12/15/19 06:47 Hgb 11.2 g/dL (12.0-15.5) L D 12/15/19 06:47 Hct 32.8 % (36.0-46.0) L 12/15/19 06:47 MCV 92.9 fL (80-95) 12/15/19 06:47 MCH 31.7 pg (27.0-33.0) 12/15/19 06:47 MCHC 34.1 g/dL (32.0-36.0) 12/15/19 06:47 RDW 13.9 % (11.7-14.6) 12/15/19 06:47 Plt Count 227 x1000/uL (130-400) 12/15/19 06:47 MPV 10.3 fL (8.0-11.0) 12/15/19 06:47 Patient ABO/Rh B Positive 12/14/19 09:48 Antibody Screen Negative 12/14/19 09:48
[2019-12-15] MEDS: Ibuprofen 600 MG TAB PO ×2 (16:48→23:51)
[2019-12-15] MEDS: Docusate Sodium 100 MG CAP PO (16:48)
[2019-12-15] MEDS: Acetaminophen 500 MG TAB 1000 MG PO (18:22)
[2019-12-16] MEDS: Acetaminophen 500 MG TAB 1000 MG PO (05:42)
--- NOTE | 2019-12-16 06:36 | ROE_ITS ---
REPORT OF OPERATIVE PROCEDURE DATE OF SURGERY: December 14, 2019 PREOPERATIVE DIAGNOSES: 1. Nonreassuring heart tones, as well as IUGR. 2. Desire for infertility and tubal sterilization. POSTOPERATIVE DIAGNOSES: 1. Nonreassuring heart tones, as well as IUGR. 2. Desire for infertility and a tubal sterilization. PROCEDURE PERFORMED: Primary low transverse caesarean section, as well as bilateral partial salpingectomy. SURGEON: Chadwick Sarkar M.D. GIFT OFFICER: Radha Stallworth ESTIMATED BLOOD LOSS 600 cc ANESTHESIA: Spinal. DESCRIPTION OF PROCEDURE: The patient was brought to the Operating Room, prepped and draped in the usual fashion. Underwent a s marion without any difficulty and placed in the supine position. A timeout was done, everybody agreed to the procedure. The patient received 2 grams of Ancef prior to beginning the skin incision, as well as azithromycin. A primary low transverse skin incision was made and carried through the skin, subcutaneous tissue and fascia. The fascia was dissected off the rectus muscles superiorly, inferiorly and the peritoneum wa s entered in the midline without any difficulty. An Nicola O retractor was used. A primary low transv erse uterine incision was made and carried upwards bilaterally bluntly. There was an anterior placent a that seemed to be abrupting and I was able to get the baby out from a vertex presentation atraumati cb. The cord was clamped and cut. The baby did well. No complications were noted. The baby suction ed first mouth, then nose. There was a delay in the cord clamping and the cord was milked. The uterus was massaged. The placenta was expelled. The uterine cavity wiped clean. The uterus was th en closed with two layers of #0- Vicryl. Excellent hemostasis. Ovaries and fallopian tube appeared n ormal. The patient consented to a bilateral salpingectomy, using LigaSure, came across the proximal end of t he tube and came in through the myosalpinx, went ahead and cauterized and cut until I went from the p roximal end of the tube into the distal end to remove the entire fimbriated end of both tubes. There was excellent hemostasis. No problems were noted. Counts were correct for needles, sponges, instrumen ts and the peritoneum was closed with #2-0 Vicryl. The fascia was closed with #0- Vicryl. The skin wa s closed with #4-0 Monocryl. I then went ahead and placed Mastisol and Steri-Strips along the skin. C lear urine at the end of the procedure. No complications noted. The patient was brought to the [facility] Room in excellent condition.
[2019-12-16] MEDS: Methadone Liquid 10 MG/ML 65 MG PO (08:18)
--- NOTE | 2019-12-16 09:18 | W.PM.PROGNOT ---
Date of Service Date of service: 12/16/19 Time of Service: 09:19 Subjective Subjective Interval history since last seen: Doing well. Pain well controlled. Ambulatory Tolerating regular diet. Desires discharge home. Exam GI Other: Incision C/D/I. Approrpriately tender. Objective Objective Clinical Data: Vital Signs Pain Level 6 12/16/19 05:42 Intake & Output 12/15/19 12/15/19 12/16/19 11:59 23:59 11:59 Intake Total 406.667 / 724.017 317.35 / 724.017 Balance 406.667 / 724.017 317.35 / 724.017 Intake: IV 406.667 / 724.017 317.35 / 724.017 Laboratory Results WBC 19.76 k/cumm (4.4-10.8) H D 12/15/19 06:47 RBC 3.53 m/cumm (4.00-5.20) L 12/15/19 06:47 Hgb 11.2 g/dL (12.0-15.5) L D 12/15/19 06:47 Hct 32.8 % (36.0-46.0) L 12/15/19 06:47 MCV 92.9 fL (80-95) 12/15/19 06:47 MCH 31.7 pg (27.0-33.0) 12/15/19 06:47 MCHC 34.1 g/dL (32.0-36.0) 12/15/19 06:47 RDW 13.9 % (11.7-14.6) 12/15/19 06:47 Plt Count 227 x1000/uL (130-400) 12/15/19 06:47 MPV 10.3 fL (8.0-11.0) 12/15/19 06:47 Patient ABO/Rh B Positive 12/14/19 09:48 Antibody Screen Negative 12/14/19 09:48
== END 2019-12-16 11:10 | disposition home or self-care (01) | DRG 784 ==
PROVIDERS: Admitting Provider Obstetrics & Gynecology; PCP Family Medicine; Visit Provider Obstetrics & Gynecology
PROC: 10D00Z1 Extraction of Products of Conception, Low, Open Approach (ICD-10-PCS; CPT 59514; principal; 2019-12-14 13:00)
DX: O76 Abnormality in fetal heart rate and rhythm complicating labor and delivery (principal); F11.20 Opioid dependence, uncomplicated; O99.324 Drug use complicating childbirth; O98.32 Other infections with a predominantly sexual mode of transmission complicating childbirth; Z37.0 Single live birth; O99.344 Other mental disorders complicating childbirth; O99.334 Smoking (tobacco) complicating childbirth; O99.52 Diseases of the respiratory system complicating childbirth; Z3A.37 37 weeks gestation of pregnancy; Z30.2 Encounter for sterilization; F41.8 Other specified anxiety disorders; F17.210 Nicotine dependence, cigarettes, uncomplicated; J45.909 Unspecified asthma, uncomplicated; Z67.20 Type B blood, Rh positive
CPT/HCPCS: 59514; 58611; 36415; 85027; 86850; 86900; 86901; 99221; 99231; 99233; 88302; 88304; 88307; J0131; J0456; J1100; J1200; J1885; J2405; J2590; J3010; J3490

== ENCOUNTER 2021-06-09 20:09 | Outpatient (REF) | payer MEDICAID, SELFPAY ==
[2021-06-09 20:05] LABS: HCT 40.9 % (36.0-46.0); HGB 13.3 g/dL (11.2-15.7); MCH 30.2 pg (27.0-33.0); MCHC 32.5 % (32.0-36.0); MPV 10.1 fL (8.0-11.0); Platelet Count 253 10^3/uL (130-400); RDW 13.1 % (11.7-14.6); WBC 9.37 10^3/uL (4.4-10.8)
[2021-06-09 20:37] LABS: Anion Gap 7.6 mmol/L (3-11); BUN 13 mg/dL (7-18); CO2 29.4 mmol/L (21.0-32.0); CREATININE 0.9 mg/dL (0.55-1.02); Chloride 104 mmol/L (98-107); Glucose 70 mg/dL (74-106); Potassium 4.7 mmol/L (3.5-5.1); Sodium 141 mmol/L (136-145)
[2021-06-11 09:38] LABS: Hepatitis C Ab w Rflx HCV PCR Negative (Negative)
== END 2021-06-09 20:10 | disposition home or self-care (01) ==
LOC: NCHCN 20:09
PROVIDERS: Family Medicine; PCP Family Medicine; Visit Provider Family Medicine
DX: F31.9 Bipolar disorder, unspecified (principal); K50.90 Crohn's disease, unspecified, without complications; Z11.59 Encounter for screening for other viral diseases
CPT/HCPCS: 80048; 85027; 86803; 84443

== ENCOUNTER 2021-06-16 03:03 | Outpatient (CLI) | payer MEDICAID, SELFPAY ==
[2021-06-16 12:55] LABS: Lithium 0.9 mmol/l (0.6-1.2)
== END 2021-06-16 03:04 | disposition home or self-care (01) ==
LOC: LBO 03:04
PROVIDERS: PCP Family Medicine; Visit Provider Family Medicine
DX: F31.9 Bipolar disorder, unspecified (principal); Z51.81 Encounter for therapeutic drug level monitoring
CPT/HCPCS: 36415; 80178

== ENCOUNTER 2021-06-23 20:39 | Outpatient (REF) | payer MEDICAID, SELFPAY ==
[2021-06-23 21:56] LABS: HCT 41.8 % (36.0-46.0); HGB 13.8 g/dL (11.2-15.7); MCH 30.2 pg (27.0-33.0); MCV 91.5 fL (80-95); MPV 10.2 fL (8.0-11.0); Platelet Count 277 10^3/uL (130-400); RBC 4.57 10^6/uL (3.93-5.22); RDW 13.2 % (11.7-14.6); RDW-SD 44.8 fL; WBC 19.56 10^3/uL (4.4-10.8)
[2021-06-23 22:17] LABS: Anion Gap 11.4 mmol/L (3-11); BUN 10 mg/dL (7-18); CO2 26.6 mmol/L (21.0-32.0); CREATININE 1.2 mg/dL (0.55-1.02); Calcium 9.4 mg/dL (8.5-10.1); Chloride 103 mmol/L (98-107); Estimated GFR 51.74 (mL/min/1.73m2); Glucose 91 mg/dL (74-106); Potassium 3.7 mmol/L (3.5-5.1); Sodium 141 mmol/L (136-145)
[2021-06-23 22:30] LABS: Lithium 0.4 mmol/l (0.6-1.2)
== END 2021-06-23 20:40 | disposition home or self-care (01) ==
LOC: NCHCN 20:39
PROVIDERS: PCP Family Medicine; Visit Provider Family Medicine
DX: Z51.81 Encounter for therapeutic drug level monitoring (principal)
CPT/HCPCS: 80048; 85027; 80178; 84443

== ENCOUNTER 2021-07-12 14:55 | Outpatient (REF) | payer MEDICAID, SELFPAY ==
[2021-07-12 14:16] LABS: Abs Immature Grans 0.03 10^3/uL (0.0-0.06); Absolute Basophil Count 0.03 10^3/uL (0.0-0.2); Absolute Eosinophil Count 0.08 10^3/uL (0.0-0.7); Absolute Lymphocyte Count 2.82 10^3/uL (1.2-3.4); Absolute Monocyte Count 0.57 10^3/uL (0.1-0.8); Absolute Neutrophil Count 7.14 10^3/uL (1.2-6.7); Basophils % 0.3; Eosinophils % 0.7; HCT 42.6 % (36.0-46.0); HGB 13.9 g/dL (11.2-15.7); Immature Grans % 0.3; Lymphocytes % 26.4; MCHC 32.6 % (32.0-36.0); MCV 91.8 fL (80-95); Monocytes % 5.3; Nucleated RBC 0 %; Platelet Count 247 10^3/uL (130-400); RBC 4.64 10^6/uL (3.93-5.22); RDW 12.4 % (11.7-14.6); RDW-SD 42.4 fL; WBC 10.67 10^3/uL (4.4-10.8)
[2021-07-12 14:50] LABS: Anion Gap 8.9 mmol/L (3-11); BUN 11 mg/dL (7-18); CO2 27.1 mmol/L (21.0-32.0); CREATININE 0.9 mg/dL (0.55-1.02); Calcium 8.9 mg/dL (8.5-10.1); Chloride 104 mmol/L (98-107); Glucose 139 mg/dL (74-106); Potassium 4.4 mmol/L (3.5-5.1); Sodium 140 mmol/L (136-145)
[2021-07-12 14:59] LABS: Lithium 0.9 mmol/l (0.6-1.2)
== END 2021-07-12 14:56 | disposition home or self-care (01) ==
LOC: NCHCN 14:55
PROVIDERS: PCP Family Medicine; Referring Provider Family Medicine; Visit Provider Family Medicine
DX: D72.829 Elevated white blood cell count, unspecified (principal); Z51.81 Encounter for therapeutic drug level monitoring
CPT/HCPCS: 80048; 80178; 85025

== ENCOUNTER 2022-03-29 17:55 | Outpatient (REF) | payer MEDICAID, SELFPAY ==
[2022-03-29 14:40] LABS: Abs Immature Grans 0.03 10^3/uL (0.0-0.06); Absolute Basophil Count 0.03 10^3/uL (0.0-0.2); Absolute Eosinophil Count 0.11 10^3/uL (0.0-0.7); Absolute Lymphocyte Count 3.38 10^3/uL (1.2-3.4); Absolute Monocyte Count 0.63 10^3/uL (0.1-0.8); Absolute Neutrophil Count 5.78 10^3/uL (1.2-6.7); Basophils % 0.3; Eosinophils % 1.1; HGB 13.1 g/dL (11.2-15.7); Immature Grans % 0.3; Lymphocytes % 33.9; MCH 30.5 pg (27.0-33.0); MCHC 33.6 % (32.0-36.0); MCV 91 fL (80-95); MPV 9.9 fL (8.0-11.0); Monocytes % 6.3; Neutrophils % 58.1; Platelet Count 260 10^3/uL (130-400); RBC 4.29 10^6/uL (3.93-5.22); RDW-SD 43.6 fL; WBC 9.96 10^3/uL (4.4-10.8)
[2022-03-29 15:07] LABS: ALT 31 U/L (14-59); AST 17 U/L (15-37); Albumin 3.7 g/dL (3.4-5.0); Alkaline Phosphatase 75 U/L (46-116); Anion Gap 4.5 mmol/L (3-11); BUN 16 mg/dL (7-18); Bilirubin, Total 0.2 mg/dL (0.2-1.0); C-Reactive Protein 0.19 mg/dL (0.0-0.3); CO2 30.5 mmol/L (21.0-32.0); CREATININE 0.9 mg/dL (0.55-1.02); Chloride 102 mmol/L (98-107); Glucose 97 mg/dL (74-106); Potassium 4.5 mmol/L (3.5-5.1); Sodium 137 mmol/L (136-145); TSH (W/Ref FT4) 1.54 uIU/mL (0.36-3.74); Total Protein 6.7 g/dL (6.4-8.2)
[2022-03-29 15:16] LABS: Lithium < 0.2 mmol/l (0.6-1.2)
== END 2022-03-29 17:56 | disposition home or self-care (01) ==
LOC: NCHCN 17:55
PROVIDERS: PCP Family Medicine; Visit Provider Family Medicine
DX: K50.90 Crohn's disease, unspecified, without complications (principal); Z51.81 Encounter for therapeutic drug level monitoring; Z79.899 Other long term (current) drug therapy; F31.89 Other bipolar disorder
CPT/HCPCS: 80053; 80178; 84443; 85025; 86140

== ENCOUNTER 2022-04-06 20:41 | Emergency (ER) | payer MEDICAID, SELFPAY ==
--- NOTE | 2022-04-08 15:27 | PDOC.MHCN ---
Date of service: 04/08/22 Time of Service: 14:45 Mental Health Crisis Note Presenting Issue How did you arrive at the ED and why did you come: The client is a 32yo female, history of bipolar DO, brought to [facility] via [facility] on a mental health warrant on 04.06.22 after texting her ex-partner intention to kill herself via sleeping medication overdose. 2nd certification passed 04.07.22. Client is seen for 2nd daily [facility] screening. Precipitating Factors Client denied SI/HI/NSSIB, intent or plan. No evidence of delusions, hallucinations, or psychotic thought process during interaction. Insight and judgment appear fair. She appeared upset when discussing her 2yo daughter. She stated The police report said they could leave her with my parents which isn't true. Now he (father) can't be with his daughter because my mother is a two-faced cunt. My daughter has a fever of 102 and she's doing nothing about it while I'm stuck here. Disposition BEHAVIOR: Cooperative EYE CONTACT: Fair MOOD: I'm pretty pissed off right now. AFFECT: Agitated APPETITE: Decreased SLEEP(trouble falling/staying asleep: No change Plan The client will remain on involuntary status and await recommended in-patient treatment. [facility] will provide twice daily mental status and disposition assessments to determine continued need for placement. Per [place], [facility] have secured transport to [facility] for tomorrow 04.09.22 (no time given). Signature Clinician's Name/Title: Mauri Navarro BA, [facility]
== END 2022-04-06 22:00 ==
PROVIDERS: PCP Family Medicine
DX: Z53.21 Procedure and treatment not carried out due to patient leaving prior to being seen by health care provider (principal)

== ENCOUNTER 2022-04-06 23:12 | Emergency (ER) | payer MEDICAID, SELFPAY ==
[2022-04-06 23:21] VITALS: BP 128/75; PULSE 82; RESP 18; TEMP 36.6; O2SAT 98
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
[2022-04-06] MEDS: traZODone 50 MG TAB PO (23:51)
[2022-04-06 23:53] LABS: Source Nasal/Nares
[2022-04-06 23:54] LABS: Abs Immature Grans 0.05 10^3/uL (0.0-0.06); Absolute Eosinophil Count 0.02 10^3/uL (0.0-0.7); Absolute Lymphocyte Count 3.06 10^3/uL (1.2-3.4); Absolute Monocyte Count 1.39 10^3/uL (0.1-0.8); Basophils % 0.3; Eosinophils % 0.1; HCT 40.1 % (36.0-46.0); HGB 13.4 g/dL (11.2-15.7); Immature Grans % 0.3; Lymphocytes % 19.8; MCH 30.5 pg (27.0-33.0); MCHC 33.4 % (32.0-36.0); MCV 91 fL (80-95); MPV 9.2 fL (8.0-11.0); Neutrophils % 70.5; Platelet Count 276 10^3/uL (130-400); RDW 13.4 % (11.7-14.6); WBC 15.46 10^3/uL (4.4-10.8)
[2022-04-06 23:55] LABS: Absolute Basophil Count 0.05 10^3/uL (0.0-0.2); Bilirubin Negative (Negative); Blood Moderate (Negative); Clarity Cloudy (Clear); Glucose Negative (Negative); Ketones Negative (Negative); Leukocyte Esterase Negative (Negative); Nitrite Negative (Negative); Specific Gravity >= 1.030 (1.005-1.025); Urobilinogen 0.2 EU/dL (Up TO 0.2)
[2022-04-07 00:02] LABS: Bacteria Many HPF (Negative); C & S Indicated? No/Sq. Contamination; Epithelial Cells Many HPF (Negative)
[2022-04-07 00:05] LABS: *AMPHETAMINES SCREEN URINE Negative (Negative); *BARBITURATES SCREEN URINE Negative (Negative); *BENZODIAZEPINES SCREEN URINE Negative (Negative); Cannabinoids THC Positive (Negative); Cocaine Screen,Urine Positive (Negative); METHADONE URINE SCREEN Positive (Negative); OPIATES URINE SCREEN Negative (Negative)
[2022-04-07 00:06] LABS: Tricyclic Antidepressants Negative (Negative)
[2022-04-07 00:09] LABS: Lithium 0.6 mmol/l (0.6-1.2)
[2022-04-07 00:12] LABS: Salicylate < 2.8 mg/dL (<2.8)
[2022-04-07 00:17] LABS: Acetaminophen < 2 ug/mL (10-30)
[2022-04-07 00:21] LABS: ALT 35 U/L (14-59); AST 21 U/L (15-37); Albumin 4.1 g/dL (3.4-5.0); Alkaline Phosphatase 83 U/L (46-116); Anion Gap 7.8 mmol/L (3-11); BUN 17 mg/dL (7-18); Bilirubin, Total 0.7 mg/dL (0.2-1.0); CO2 28.2 mmol/L (21.0-32.0); CREATININE 0.9 mg/dL (0.55-1.02); Calcium 9.4 mg/dL (8.5-10.1); Chloride 103 mmol/L (98-107); Glucose 85 mg/dL (74-106); Potassium 3.4 mmol/L (3.5-5.1); Sodium 139 mmol/L (136-145); TSH (W/Ref FT4) 3.63 uIU/mL (0.36-3.74)
[2022-04-07 00:23] LABS: ETHANOL BLOOD < 3.0 mg/dL (<10)
[2022-04-07 00:43] LABS: COVID-19 PCR Negative (Negative)
--- NOTE | 2022-04-07 07:18 | NUR.NOTE ---
pt is anticipating breakfast and meds , both have been orderd Nursing Note:
[2022-04-07] MEDS: Methadone Liquid 10 MG/ML 90 MG PO (07:35)
[2022-04-07] MEDS: Lithium Carbonate 300 MG CAP PO ×3 (07:44→19:52)
--- NOTE | 2022-04-07 10:40 | CMSP_ITS ---
- If Service Date Differs Date of service: 04/07/22 Time of Service: 10:40 Care Management Safety Plan Status: Involuntary - Reason for Wait Reason for Wait: Inpatient Admission INVOLUNTARY FOR INPATIENT PSYCHIATRIC STABILIZATION. Safety plan has been established to meet the needs of the patient, and consideration of the care team, to adhere to patient goals, identify restrictions based on behavioral status, address nutrition, and determine allowed personal belongings, tools for hygiene and personal care. Determine level of activity including ambulation, level of supervision, visitors, and determine privileges based on behaviors and level of engagement by pt. A huddle is done at 11:[address] Moran, ED provider, Carline, nursing occupational therapy supervisor, Araceli, charge nurse, Augusta RN, and SYL Cabrera, in attendance. SAFETY PLAN: 1. Will remain on SI/HI precautions. In Paper Clothes 2. Will remain in room under direct supervision of one-on-one staff at all times provided by CPSO, SUSAN, RESTAURANT SHIFT LEADER tubing supervisor. 3. May have paper cups, plates, finger foods as well as a cardboard spoon with which to eat meals. 4. Follow [facility] Management of the Admitted Behavioral Health Patient policy. 5. Shower permitted with escort at RN discretion. 6. No personal belongings with the exception of eyeglasses. 7. Visitors: Per [facility] visitor policy and at RN/provider discretion. 8. Activities: Soft cart items, music tablet, television, and other activities at RN discretion. 9. Bathroom privileges with escort in the ED. 10. Phone: May use [employer] hospital phone at RN discretion. 11. Due to INVOLUNTARY status, patient is being held at [facility] by the Department of Mental Health (DM) until 2nd certification by [facility] Psychiatrist can be performed (within 24 hours). Staff will provide de-escalation support (CPI) as needed. If patient wishes to leave [facility], staff will contact [facility] Crisis Screener ([phone]) and On-Call Laborer/Key Man ([phone]) as soon as possible. In the event of elopement, notify [facility] Police ([phone]). Patient is currently involuntarily at [facility]. [facility] Frontline Ply Splicer will continue seeking placement. Please contact the Technical Systems Architect Laborer/Key Man ([phone]) for any needed changes to Safety Plan. Safety plan has been provided to interdepartmental care team. Patient will be transported by [facility] at time of discharge.
--- NOTE | 2022-04-07 10:40 | PDOC.CMSAFED ---
- If Service Date Differs Date of service: 04/07/22 Time of Service: 10:40 Care Management Safety Plan Status: Involuntary - Reason for Wait Reason for Wait: Inpatient Admission INVOLUNTARY FOR INPATIENT PSYCHIATRIC STABILIZATION. Safety plan has been established to meet the needs of the patient, and consideration of the care team, to adhere to patient goals, identify restrictions based on behavioral status, address nutrition, and determine allowed personal belongings, tools for hygiene and personal care. Determine level of activity including ambulation, level of supervision, visitors, and determine privileges based on behaviors and level of engagement by pt. A huddle is done at 11:[address] Moran, ED provider, Carline, nursing hatchery supervisor, Araceli, charge nurse, Augusta RN, and SYL Cabrera, in attendance. SAFETY PLAN: 1. Will remain on SI/HI precautions. In Paper Clothes 2. Will remain in room under direct supervision of one-on-one staff at all times provided by CPSO, SUSAN, DECKHAND FISHING VESSEL stock supervisor. 3. May have paper cups, plates, finger foods as well as a cardboard spoon with which to eat meals. 4. Follow [facility] Management of the Admitted Behavioral Health Patient policy. 5. Shower permitted with escort at RN discretion. 6. No personal belongings with the exception of eyeglasses. 7. Visitors: Per [facility] visitor policy and at RN/provider discretion. 8. Activities: Soft cart items, music tablet, television, and other activities at RN discretion. 9. Bathroom privileges with escort in the ED. 10. Phone: May use [employer] hospital phone at RN discretion. 11. Due to INVOLUNTARY status, patient is being held at [facility] by the Department of Mental Health (DM) until 2nd certification by [facility] Psychiatrist can be performed (within 24 hours). Staff will provide de-escalation support (CPI) as needed. If patient wishes to leave [facility], staff will contact [facility] Crisis Screener ([phone]) and On-Call Farmworker ([phone]) as soon as possible. In the event of elopement, notify [facility] Police ([phone]). Patient is currently involuntarily at [facility]. [facility] Frontline Paperhanger Supervisor will continue seeking placement. Please contact the Digitizer Operator Farmworker ([phone]) for any needed changes to Safety Plan. Safety plan has been provided to interdepartmental care team. Patient will be transported by [facility] at time of discharge.
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
[2022-04-07] MEDS: Propranolol 10 MG TAB PO ×2 (15:44→19:52)
[2022-04-07] MEDS: LORazepam 1 MG TAB PO (16:08)
[2022-04-07 19:12] VITALS: BP 141/79; PULSE 60; RESP 17; TEMP 36.8; O2SAT 97
[2022-04-07] MEDS: traZODone 50 MG TAB PO (19:51)
[2022-04-07] MEDS: Prazosin 1 MG CAP PO (19:52)
--- NOTE | 2022-04-07 19:58 | NUR.NOTE ---
Pt stated that she wished to go to sleep for the night. Declined HS care. Evening meds given. Some early as to not wake her later for meds for sleep.
--- NOTE | 2022-04-07 20:15 | W.EDPROG ---
Date of service: 04/08/22 Time of Service: 01:00 Medical Decision Making patient had second cert done and is involuntary, no issues during the day. Will continue to monitor until bed placement found. Will also order a psychiatry consult to evaluate her tomorrow Sign Out Sign Out Data: Sign Out Comment: EE for depression and SI, stable overnight, pending second cert. Reportedly while she had her kid texted her ex to come get their kid because she was going to OD on all her sleeping pills Last updated by Jakob Jack MD at 04/07/22 02:49 Sign Out Comment: 2nd cert done. EE. Meds reconciled. Awaits placement. Last updated by Erick Moran MD at 04/07/22 19:04 Discharge Plan Disposition Patient Disposition: STILL A PATIENT Condition: Stable Discharge Details Clinical Impression: Depression Primary Care Provider: Qing Wu ED Provider: Jakob Jack Home Meds and New Rx's Prescriptions: No Action pantoprazole [Protonix] 20 mg tablet,delayed release (DR/EC) 20 mg PO DAILY Qty: 30 3RF PrePlus 27 mg iron- 1 mg tablet 1 tab PO DAILY Qty: 90 6RF Rx Instructions: give with food (meal/snack) valacyclovir [Valtrex] 500 mg tablet 500 mg PO DAILY Qty: 30 2RF norethindrone acetate [Aygestin] 5 mg tablet 5 mg PO BID Qty: 30 1RF trazodone 50 mg tablet 50 tab PO QHS Label Comments: TAKE 1 TABLET BY MOUTH EVERY NIGHT NEEDED FOR INSOMNIA lithium carbonate 300 mg tablet 300 tab PO DAILY methadone 10 mg/mL Concentrate 90 mg PO DAILY Rx Instructions: DOSE VERIFIED WITH BADUNCAN 04/07/2022 propranolol 10 mg tablet 10 mg PO PRN PRN Label Comments: TAKE 1 TABLET BY MOUTH THREE TIMES DAILY NEEDED FOR ANXIETY prazosin 1 mg capsule 1 mg PO HS Label Comments: TAKE 1 CAPSULE BY MOUTH AT BEDTIME
[2022-04-08 06:15] VITALS: BP 94/64; PULSE 67; RESP 15; TEMP 36.5; O2SAT 95
[2022-04-08] MEDS: Methadone Liquid 10 MG/ML 90 MG PO (08:28)
[2022-04-08] MEDS: Propranolol 10 MG TAB PO ×3 (08:28→23:17)
[2022-04-08] MEDS: Lithium Carbonate 300 MG CAP PO ×3 (08:28→23:17)
--- NOTE | 2022-04-08 10:12 | PDOC.MHCN ---
Date of service: 04/08/22 Time of Service: 10:12 Mental Health Crisis Note Presenting Issue How did you arrive at the ED and why did you come: Client presented to the ED on 04.06.2022 via MH Warrant. She had her second certification on 04.07.2022 which passed. Precipitating Factors Client denied SI, HI and NSSI. She is not showing any signs of delusions. Disposition BEHAVIOR: Client was cooperative during the assessment today. She showed fair insight and judgement. EYE CONTACT: Client made fair eye contact. MOOD: Client described her mood as about as well as it can be while I am here. Prior to today she described her mood as depressed. AFFECT: Client's affect is flat and at times labile. APPETITE: Client is described to be eating fine. SLEEP(trouble falling/staying asleep: Client is described to be sleeping fine. Plan Client will remain at [facility] on EE status and referrals were sent out. Client is reported to be taking medications now so if this continues and she also continues to remain calm and cooperative and showing insight, may be eligible to be waked off. Signature Clinician's Name/Title: Mary Parker MS, [facility] Emergency Services Clinician, [facility]
--- NOTE | 2022-04-08 11:00 | CMSP_ITS ---
- If Service Date Differs Date of service: 04/08/22 Time of Service: 11:00 Care Management Safety Plan Status: Involuntary - Reason for Wait Reason for Wait: Inpatient Admission INVOLUNTARY FOR INPATIENT PSYCHIATRIC STABILIZATION. Safety plan has been established to meet the needs of the patient, and consideration of the care team, to adhere to patient goals, identify restrictions based on behavioral status, address nutrition, and determine allowed personal belongings, tools for hygiene and personal care. Determine level of activity including ambulation, level of supervision, visitors, and determine privileges based on behaviors and level of engagement by pt. A huddle is held at 14:[address] Moran, ED provider, Patience, nursing supervisor pit and auxiliaries, Araceli, charge nurse, and SYL Cabrera, in attendance. SAFETY PLAN: 1. Will remain on SI/HI precautions. In Paper Clothes 2. Will remain in room under direct supervision of one-on-one staff at all times provided by CPSO, SUSAN, MECHANICAL SPREADER OPERATOR public employment mediator. 3. May have paper cups, plates, finger foods as well as a cardboard spoon with which to eat meals. 4. Follow [facility] Management of the Admitted Behavioral Health Patient policy. 5. Shower permitted with escort at RN discretion. 6. No personal belongings with the exception of eyeglasses. 7. Visitors: Per [facility] visitor policy and at RN/provider discretion. 8. Activities: Soft cart items, music tablet, television, and other activities at RN discretion. 9. Bathroom privileges with escort in the ED. 10. Phone: May use [employer] hospital phone at RN discretion. 11. Due to INVOLUNTARY status, patient is being held at [facility] by the Department of Mental Health ([facility]). A 2nd certification by [facility] Psychiatrist is performed on 04/07/22 and the involuntary status is upheld. Staff will provide de-escalation support (CPI) as needed. If patient wishes to leave [facility], staff will contact [facility] Crisis Screener ([phone]) and On-Call Design Engineering Manager ([phone]) as soon as possible. In the event of elopement, notify [facility] Police ([phone]). Patient is currently involuntarily at [facility]. [facility] Frontline Resident Associate will continue seeking placement. Please contact the Range Feeder Design Engineering Manager ([phone]) for any needed changes to Safety Plan. Safety plan has been provided to interdepartmental care team. Patient will be transported by bisque grader at time of discharge.
--- NOTE | 2022-04-08 11:00 | PDOC.CMSAFED ---
- If Service Date Differs Date of service: 04/08/22 Time of Service: 11:00 Care Management Safety Plan Status: Involuntary - Reason for Wait Reason for Wait: Inpatient Admission INVOLUNTARY FOR INPATIENT PSYCHIATRIC STABILIZATION. Safety plan has been established to meet the needs of the patient, and consideration of the care team, to adhere to patient goals, identify restrictions based on behavioral status, address nutrition, and determine allowed personal belongings, tools for hygiene and personal care. Determine level of activity including ambulation, level of supervision, visitors, and determine privileges based on behaviors and level of engagement by pt. A huddle is held at 14:[address] Moran, ED provider, Patience, nursing examination supervisor, Araceli, charge nurse, and SYL Cabrera, in attendance. SAFETY PLAN: 1. Will remain on SI/HI precautions. In Paper Clothes 2. Will remain in room under direct supervision of one-on-one staff at all times provided by CPSO, SUSAN, EXTRUSION BENDER technical support engineer. 3. May have paper cups, plates, finger foods as well as a cardboard spoon with which to eat meals. 4. Follow [facility] Management of the Admitted Behavioral Health Patient policy. 5. Shower permitted with escort at RN discretion. 6. No personal belongings with the exception of eyeglasses. 7. Visitors: Per [facility] visitor policy and at RN/provider discretion. 8. Activities: Soft cart items, music tablet, television, and other activities at RN discretion. 9. Bathroom privileges with escort in the ED. 10. Phone: May use [employer] hospital phone at RN discretion. 11. Due to INVOLUNTARY status, patient is being held at [facility] by the Department of Mental Health ([facility]). A 2nd certification by [facility] Psychiatrist is performed on 04/07/22 and the involuntary status is upheld. Staff will provide de-escalation support (CPI) as needed. If patient wishes to leave [facility], staff will contact [facility] Crisis Screener ([phone]) and On-Call Study Specialist ([phone]) as soon as possible. In the event of elopement, notify [facility] Police ([phone]). Patient is currently involuntarily at [facility]. [facility] Frontline Behavioral Health Consultant will continue seeking placement. Please contact the Business Development Analyst Study Specialist ([phone]) for any needed changes to Safety Plan. Safety plan has been provided to interdepartmental care team. Patient will be transported by through operator at time of discharge.
[2022-04-08] MEDS: LORazepam 1 MG TAB PO ×2 (14:09→23:17)
--- NOTE | 2022-04-08 14:17 | CMPROGNOTE_ITS ---
- If Service Date Differs Date of service: 04/08/22 Time of Service: 14:17 Care Management Progress Note S/O: Sade receives several phone calls throughout the day from Los (tel # [phone]), the father of her youngest daughter. Sade becomes upset after being told by Los that their 2 year old daughter is sick and her parents, who are currently caring for the daughter, are reportedly refusing to seek medical care for the child or to allow Los to take physical custody of the child. Sade states her parents are horrible people and she does not want either one of her kids to be in their care while she is in the hospital. She alleges having told this to the [facility] youth corrections officer who brought her to the hospital but says the officer ignored her request. Sade calls the [facility] Police barracks to request that they either do a wellcare check on her daughter or accompany Los to the ho use to chicken picker the child but the officer reportedly refuses, telling her there is nothing he can do. Sade becomes even more upset, accusing [facility] of holding her against her will and saying it will be the hospital's fault if her child dies because of a lack of care. Sade is eventually able to regain her composure and appropriately asks for medication to help her calm down. A: Sade remains at [facility] on involuntary status awaiting placement. P: Referrals are faxed to [facility], [facility], [facility], and [facility] for review. Sade is accepted for placement by the [facility] and the doc-to-doc is performed. Sade is scheduled to transfer to the [facility] via a transport team arranged by [facility] on Monday. CM will continue to follow. - Status Status: Involuntary - Reason for Wait Reason for Wait: Inpatient Admission
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
--- NOTE | 2022-04-08 22:36 | W.EDPROG ---
Date of service: 04/08/22 Time of Service: 22:36 Medical Decision Making No issues this evening. Patient requested a dose of Ativan at 2230. Plan is for patient to go to [place] tomorrow. Please see previous providers notes for course and plan regarding Dr. Gold's medications recommendations if needed. Case endorsed to Dr. Jack to continue to monitor overnight. Sign Out Sign Out Data: Sign Out Comment: EE for depression and SI, stable overnight, pending second cert. Reportedly while she had her kid texted her ex to come get their kid because she was going to on all her sleeping pills Last updated by Jakob Jack MD at 04/07/22 02:49 Sign Out Comment: 2nd cert done. EE. Meds reconciled. Awaits placement. Last updated by Erick Moran MD at 04/07/22 19:04 Sign Out Comment: no issues overnight, psych consult ordered Last updated by Jakob Jack MD at 04/07/22 23:38 Sign Out Comment: montse MANN at 1400, plan for [place] tomorrow. Consider start Effexor XL 150 QD in AM Last updated by Erick Moran MD at 04/08/22 15:44 Sign Out Comment: No issues this evening. Plan is for transfer to [place] tomorrow. Ativan PO at 2300. Refer to psychiatry's medication recommendations if needed. Last updated by Laurel Tripp DO at 04/08/22 22:43 Discharge Plan Disposition Patient Disposition: STILL A PATIENT Condition: Stable Discharge Details Clinical Impression: Depression Primary Care Provider: Qing Wu ED Provider: Jakob Jack Home Meds and New Rx's Prescriptions: No Action pantoprazole [Protonix] 20 mg tablet,delayed release (DR/EC) 20 mg PO DAILY Qty: 30 3RF PrePlus 27 mg iron- 1 mg tablet 1 tab PO DAILY Qty: 90 6RF Rx Instructions: give with food (meal/snack) valacyclovir [Valtrex] 500 mg tablet 500 mg PO DAILY Qty: 30 2RF norethindrone acetate [Aygestin] 5 mg tablet 5 mg PO BID Qty: 30 1RF trazodone 50 mg tablet 50 tab PO QHS Label Comments: TAKE 1 TABLET BY MOUTH EVERY NIGHT NEEDED FOR INSOMNIA methadone 10 mg/mL Concentrate 90 mg PO DAILY Rx Instructions: DOSE VERIFIED WITH LIZA 04/07/2022 propranolol 10 mg tablet 10 mg PO PRN PRN Label Comments: TAKE 1 TABLET BY MOUTH THREE TIMES DAILY NEEDED FOR ANXIETY prazosin 1 mg capsule 1 mg PO HS Label Comments: TAKE 1 CAPSULE BY MOUTH AT BEDTIME lithium carbonate 300 mg Capsule 300 mg PO TID
[2022-04-08] MEDS: Prazosin 1 MG CAP PO (23:17)
[2022-04-08] MEDS: traZODone 50 MG TAB 100 MG PO (23:18)
--- NOTE | 2022-04-09 00:18 | W.EDPROG ---
Date of service: 04/09/22 Time of Service: 00:18 Medical Decision Making pt currently sleeping and no issues during the day. Reportedly going to [place] later today, will continue to monitor until transfer is done Sign Out Sign Out Data: Sign Out Comment: EE for depression and SI, stable overnight, pending second cert. Reportedly while she had her kid texted her ex to come get their kid because she was going to on all her sleeping pills Last updated by Jakob Jack MD at 04/07/22 02:49 Sign Out Comment: 2nd cert done. EE. Meds reconciled. Awaits placement. Last updated by Erick Moran MD at 04/07/22 19:04 Sign Out Comment: no issues overnight, psych consult ordered Last updated by Jakob Jack MD at 04/07/22 23:38 Sign Out Comment: montse MANN at 1400, plan for [place] tomorrow. Consider start Effexor XL 150 QD in AM Last updated by Erick Moran MD at 04/08/22 15:44 Sign Out Comment: No issues this evening. Plan is for transfer to [place] tomorrow. Ativan PO at 2300. Refer to psychiatry's medication recommendations if needed. Last updated by Laurel Tripp DO at 04/08/22 22:43 Discharge Plan Disposition Patient Disposition: STILL A PATIENT Condition: Stable Discharge Details Clinical Impression: Depression Primary Care Provider: Qing Wu ED Provider: Jakob Jack Home Meds and New Rx's Prescriptions: No Action pantoprazole [Protonix] 20 mg tablet,delayed release (DR/EC) 20 mg PO DAILY Qty: 30 3RF PrePlus 27 mg iron- 1 mg tablet 1 tab PO DAILY Qty: 90 6RF Rx Instructions: give with food (meal/snack) valacyclovir [Valtrex] 500 mg tablet 500 mg PO DAILY Qty: 30 2RF norethindrone acetate [Aygestin] 5 mg tablet 5 mg PO BID Qty: 30 1RF trazodone 50 mg tablet 50 tab PO QHS Label Comments: TAKE 1 TABLET BY MOUTH EVERY NIGHT NEEDED FOR INSOMNIA methadone 10 mg/mL Concentrate 90 mg PO DAILY Rx Instructions: DOSE VERIFIED WITH [facility] 04/07/2022 propranolol 10 mg tablet 10 mg PO PRN PRN Label Comments: TAKE 1 TABLET BY MOUTH THREE TIMES DAILY NEEDED FOR ANXIETY prazosin 1 mg capsule 1 mg PO HS Label Comments: TAKE 1 CAPSULE BY MOUTH AT BEDTIME lithium carbonate 300 mg Capsule 300 mg PO TID
[2022-04-09] MEDS: Methadone Liquid 10 MG/ML 90 MG PO (08:21)
[2022-04-09 08:24] VITALS: BP 108/70; PULSE 81; RESP 16; TEMP 36.6; O2SAT 97
[2022-04-09] MEDS: Lithium Carbonate 300 MG CAP PO ×2 (08:29→13:04)
[2022-04-09] MEDS: Prazosin 1 MG CAP PO ×2 (08:29→13:04)
[2022-04-09] MEDS: Propranolol 10 MG TAB PO ×2 (08:29→13:04)
[2022-04-09] MEDS: Venlafaxine 150 MG CAPCR PO (08:59)
[2022-04-09] MEDS: LORazepam 1 MG TAB PO ×2 (09:09→13:11)
[2022-04-09] MEDS: Potassium Chloride 20 MEQ TABCR PO (11:25)
[2022-04-09 13:05] VITALS: BP 118/73; PULSE 87; RESP 16; O2SAT 97
--- NOTE | 2022-04-09 13:05 | ED.PROG_ITS ---
Date of service: 04/09/22 Time of Service: 13:06 Medical Decision Making Care signed out by Dr. Jack. Plan at signout was to await inpatient psychiatric placement. Patient complaining of some anxiety. She was given Ativan 1 mg p.o. Another dose was given later in the day for transport recurrent anxiety, now related to transport. Sign Out Sign Out Data: Sign Out Comment: EE for depression and SI, stable overnight, pending second cert. Reportedly while she had her kid texted her ex to come get their kid because she was going to on all her sleeping pills Last updated by Jakob Jack MD at 04/07/22 02:49 Sign Out Comment: 2nd cert done. EE. Meds reconciled. Awaits placement. Last updated by Erick Moran MD at 04/07/22 19:04 Sign Out Comment: no issues overnight, psych consult ordered Last updated by Jakob Jack MD at 04/07/22 23:38 Sign Out Comment: montse MANN at 1400, plan for [place] tomorrow. Consider start Effexor XL 150 QD in AM Last updated by Erick Moran MD at 04/08/22 15:44 Sign Out Comment: No issues this evening. Plan is for transfer to [place] tomorrow. Ativan PO at 2300. Refer to psychiatry's medication recommendations if needed. Last updated by Laurel Tripp DO at 04/08/22 22:43 Sign Out Comment: involuntary for depression/si no issues overnight reportedly accepted to [place] today Last updated by Jakob Jack MD at 04/09/22 00:27 Discharge Plan Disposition Patient Disposition: [facility] Condition: Serious Discharge Details Clinical Impression: Depression Primary Care Provider: Qing Wu ED Provider: Sukhdeep Ascencio Home Meds and New Rx's Prescriptions: No Action pantoprazole [Protonix] 20 mg tablet,delayed release (DR/EC) 20 mg PO DAILY Qty: 30 3RF PrePlus 27 mg iron- 1 mg tablet 1 tab PO DAILY Qty: 90 6RF Rx Instructions: give with food (meal/snack) valacyclovir [Valtrex] 500 mg tablet 500 mg PO DAILY Qty: 30 2RF norethindrone acetate [Aygestin] 5 mg tablet 5 mg PO BID Qty: 30 1RF trazodone 50 mg tablet 50 tab PO QHS Label Comments: TAKE 1 TABLET BY MOUTH EVERY NIGHT NEEDED FOR INSOMNIA methadone 10 mg/mL Concentrate 90 mg PO DAILY Rx Instructions: DOSE VERIFIED WITH LIZA 04/07/2022 propranolol 10 mg tablet 10 mg PO PRN PRN Label Comments: TAKE 1 TABLET BY MOUTH THREE TIMES DAILY NEEDED FOR ANXIETY prazosin 1 mg capsule 1 mg PO HS Label Comments: TAKE 1 CAPSULE BY MOUTH AT BEDTIME lithium carbonate 300 mg Capsule 300 mg PO TID
== END 2022-04-09 13:14 | disposition short-term general hospital (02) ==
PROVIDERS: Emergency Medicine; Emergency Provider Student in an Organized Health Care Education/Training Program; PCP Family Medicine
DX: F32.A Depression, unspecified (principal); F41.9 Anxiety disorder, unspecified; R45.851 Suicidal ideations; Z20.822 Contact with and (suspected) exposure to COVID-19
CPT/HCPCS: 36415; 80053; 80307; 81025; 87635; 99285; Q3014; 80178; 80320; 80329; 81003; 81015; 84443; 85025

== ENCOUNTER 2022-09-05 13:30 | Outpatient (REF) | payer MEDICAID, SELFPAY ==
[2022-09-05 15:17] LABS: Lithium 0.7 mmol/l (0.6-1.2)
[2022-09-05 15:39] LABS: ALT 22 U/L (14-59); AST 13 U/L (15-37); Albumin 3.6 g/dL (3.4-5.0); Alkaline Phosphatase 84 U/L (46-116); Anion Gap 7.4 mmol/L (3-11); BUN 7 mg/dL (7-18); Bilirubin, Total 0.2 mg/dL (0.2-1.0); CO2 28.6 mmol/L (21.0-32.0); CREATININE 0.9 mg/dL (0.55-1.02); Chloride 104 mmol/L (98-107); Estimated GFR 86.03 (mL/min/1.73m2); Glucose 116 mg/dL (74-106); Potassium 4.2 mmol/L (3.5-5.1); Sodium 140 mmol/L (136-145); TSH (W/Ref FT4) 2.62 uIU/mL (0.36-3.74); Total Protein 6.7 g/dL (6.4-8.2)
== END 2022-09-05 13:31 | disposition home or self-care (01) ==
LOC: NCHCN 13:30
PROVIDERS: PCP Family Medicine; Visit Provider Family Medicine
DX: F31.9 Bipolar disorder, unspecified (principal); Z79.899 Other long term (current) drug therapy; Z51.81 Encounter for therapeutic drug level monitoring; E88.01 Alpha-1-antitrypsin deficiency
CPT/HCPCS: 80053; 80178; 84443

== ENCOUNTER 2022-12-09 13:35 | Outpatient (REF) | payer MEDICAID, SELFPAY ==
[2022-12-13 16:38] LABS: Calprotectin <50.0 mcg/g
== END 2022-12-09 13:36 | disposition home or self-care (01) ==
LOC: NCHCN 13:35
PROVIDERS: PCP Family Medicine; Visit Provider Family Medicine
DX: K50.90 Crohn's disease, unspecified, without complications (principal)
CPT/HCPCS: 83993

== ENCOUNTER 2023-01-15 13:32 | Emergency (ER) | payer MEDICAID, SELFPAY ==
[2023-01-15 13:40] VITALS: BP 112/85; PULSE 85; RESP 18; TEMP 36.3; O2SAT 98
[2023-01-15 14:01] VITALS: RESP 18
--- NOTE | 2023-01-15 14:16 | ED.GENADUL_ITS ---
Discharge Plan Disposition Patient Disposition: Home Condition: Improving Discharge Details Clinical Impression: Acute frontal sinusitis Primary Care Provider: Qing Wu ED Provider: Erick Moran Home Meds and New Rx's Prescriptions: New amoxicillin-pot clavulanate 875-125 mg tablet 1 tab PO BID 10 Days Qty: 20 0RF Continued pantoprazole [Protonix] 20 mg tablet,delayed release (DR/EC) 20 mg PO DAILY Qty: 30 3RF valacyclovir [Valtrex] 500 mg tablet 500 mg PO DAILY Qty: 30 2RF norethindrone acetate [Aygestin] 5 mg tablet 5 mg PO BID Qty: 30 1RF trazodone 50 mg tablet 50 tab PO QHS Patient Comments: TAKE 1 TABLET BY MOUTH EVERY NIGHT NEEDED FOR INSOMNIA methadone 10 mg/mL Concentrate 90 mg PO DAILY Rx Instructions: DOSE VERIFIED WITH LIZA 04/07/2022 propranolol 10 mg tablet 10 mg PO PRN PRN Patient Comments: TAKE 1 TABLET BY MOUTH THREE TIMES DAILY NEEDED FOR ANXIETY prazosin 1 mg capsule 1 mg PO HS Patient Comments: TAKE 1 CAPSULE BY MOUTH AT BEDTIME lithium carbonate 300 mg Capsule 300 mg PO TID Discharge Instructions Instructions: Sinusitis (ED) Additional Instructions: For decongestion at night you may use Benadryl 25 mg at bedtime. Claritin 10 mg during the day if needed. Take antibiotics as prescribed. While on the antibiotics I recommend you take [id number] probiotic once daily. This will help with maintaining good gut josue. Home to rest today. Return for any acute concerns. Stand Alone Forms: Work Release Medical Decision Making This is a 33-year-old female with approximately 5 days of sinus pain and pressure. Has had some generalized associated with this. Her exam is consistent with acute sinusitis. She is otherwise well-appearing. She is a smoker who has had sinus infections in the past. We discussed proceeding with treatment with a course of antibiotics. The patient is stable and appropriate for trial of outpatient management HPI General Mode of arrival: ambulatory . Date/Time Provider Initiated Documentation: 01/15/23 13:33 . Limitations to Documentation: no limitations . Information obtained by: patient . History of Present Illness 33 year old F presents to the emergency department with the chief complaint of Frontal sinus pressure for 5 days, described as moderate, Quality is described as dull, and is localized to the head and face. Patient reports no radiation. Patient started experiencing this day(s) and it has been intermittent. No relieving factors improve symptom(s), No exacerbating factors reported . Patient notes fever/chills and headaches; denies cough, nausea/vomiting and shortness of breath. Patient did receive the following treatments prior to arrival, none Related Data Home Medications Medication Instructions Recorded Confirmed pantoprazole 20 mg tablet,delayed 20 mg PO DAILY #30 tabs 09/13/19 01/15/23 release (Protonix) valacyclovir 500 mg tablet 500 mg PO DAILY #30 tabs 11/21/19 01/15/23 (Valtrex) norethindrone acetate 5 mg tablet 5 mg PO BID #30 tabs 03/30/20 01/15/23 (Aygestin) trazodone 50 mg tablet 50 tab PO QHS 04/06/22 01/15/23 methadone 10 mg/mL oral concentrate 90 mg PO DAILY 04/07/22 01/15/23 prazosin 1 mg capsule 1 mg PO HS 04/07/22 01/15/23 propranolol 10 mg tablet 10 mg PO PRN PRN 04/07/22 01/15/23 lithium carbonate 300 mg capsule 300 mg PO TID 04/08/22 01/15/23 amoxicillin 875 mg-potassium 1 tab PO BID 10 days #20 tabs 01/15/23 clavulanate 125 mg tablet Previous Rx's Medication Instructions Recorded pantoprazole 20 mg tablet,delayed 20 mg PO DAILY #30 tabs 09/13/19 release (Protonix) valacyclovir 500 mg tablet 500 mg PO DAILY #30 tabs 11/21/19 (Valtrex) norethindrone acetate 5 mg tablet 5 mg PO BID #30 tabs 03/30/20 (Aygestin) amoxicillin 875 mg-potassium 1 tab PO BID 10 days #20 tabs 01/15/23 clavulanate 125 mg tablet Allergies Allergy/AdvReac Type Severity Reaction Status Date / Time No Known Drug Allergies Allergy Verified 01/15/23 13:43 General Stated Complaint: GenMedical LISA: 4 Review of Systems Narrative: 6 systems reviewed and otherwise negative PFSH All Active Problems (Updated 01/15/23 @ 14:19 by Erick Moran MD) Acute frontal sinusitis (Acute) PTSD (post-traumatic stress disorder) (Acute) Post-operative state (Acute) Non-reassuring electronic monitoring tracing (Acute) IUGR (intrauterine growth restriction) (Acute) ASCUS (atypical squamous cells of undetermined significance) on gynecologic Papanicolaou smear complicating , antepartum (Acute) Nausea & vomiting (Acute) zofran recommended and may take phenergan at night if desired. Call if not effective. I recommended 4 mg - 8 mg up to TID PRN. Opiate dependence (Acute) (Acute) Dating US scheduled and IOB visit. We discussed methadone use in and I advised her to continue current dose. I consulted with Dr. Lima who agrees with this. Sade was given the impression by the physician in the ED that she should decrease methadone dose in . We discussed increased chance of cravings and withdrawal symptoms in . She will also dis cuss her dosing at her next [facility] visit. Depression (Chronic) Surgical History Appendectomy Tonsillectomy Family History Mother Hyperlipidemia Social History Smoking/Tobacco Use Status: Current every day Smoking risk assessment performed?: Yes Alcohol Intake: never Drug use: Current Sobriety Substance use type: former substance user and marijuana Details: on methadone, marijuana daily Do you feel safe at home: Yes Do you feel safe in your relationship?: Yes History History 2 Para 1 Hx # Term Pregnancies 1 Multiple births Hx # Pregnancies 1 Ectopic pregnancies AB induced Hx Number of Living Children 2 AB spontaneous Past Pregnancies Del. Date GA/Weeks # Preg Succ Route Wgt Sex Labor Lgth Anesth esia Location [facility] 08/06/09 37 vaginal 2012.816 g Female regional [facility] 12/14/19 37 No 1700.[address] [facility]ark[facility] Delivery Date: 08/06/09 Last Updated by: Noris Bro CNM IOL for oligohydramnios, SGA baby Delivery Date: 12/14/19 Last Updated by: Alida Mireles LPN Reason for induction Growth Retardation Exam Narrative Exam Narrative: GEN: awake, alert, oriented 3. Pleasant, well groomed, interactive. HEAD: Normocephalic, atraumatic ENT: Mucous membranes moist, frontal sinus tenderness to percussion, oropharynx unremarkable, right tympanic membrane is distended, left tympanic membrane unremarkable, external ear exam unremarkable EYES: PERRL, EOMI NECK: Full ROM, no CHAUNCEY, no menigismus CHEST/RESP: Nontender, clear to auscultation bilateral, no wheeze/rhonchi/rales CARDIOVASCULAR: RRR, no murmur, rub dagmar. 2+ Rad pulse bilateral EXT: Full ROM, no edema, no rash Neuro: Grossly normal neurologic exam, conversant, interactive. Course Vital Signs Vital signs: Vital Signs Temperature 36.3 C L 01/15/23 13:40 Pulse 85 01/15/23 13:40 Respiratory Rate 18 01/15/23 13:40 Blood Pressure 112/85 01/15/23 13:40 Pulse Oximetry 98 01/15/23 13:40 Temperature 36.3 C L 01/15/23 13:40 Temperature Source Tympanic 01/15/23 13:40 Pulse 85 01/15/23 13:40 Respiratory Rate 18 01/15/23 14:01 Respiratory Effort Normal 01/15/23 14:01 Respiratory Depth Normal 01/15/23 14:01 Respiratory Pattern Normal 01/15/23 14:01 Blood Pressure 112/85 01/15/23 13:40 Blood Pressure Position Sitting 01/15/23 13:40 Pulse Oximetry 98 01/15/23 13:40 Oxygen Delivery Method Room Air 01/15/23 13:40 Oxygen Flow Rate 0 01/15/23 13:40 Pain Level 4 01/15/23 13:40
== END 2023-01-15 14:27 | disposition home or self-care (01) ==
PROVIDERS: Emergency Provider Emergency Medicine; PCP Family Medicine
DX: J01.10 Acute frontal sinusitis, unspecified (principal)
CPT/HCPCS: 99283; 99284

== ENCOUNTER 2023-02-18 15:29 | Emergency (ER) | payer MEDICAID, SELFPAY ==
[2023-02-18 15:33] VITALS: BP 106/69; PULSE 68; RESP 14; TEMP 36.3; O2SAT 97
--- NOTE | 2023-02-18 15:45 | DI.RAD_ITS ---
Exam(s) XR LUMBAR SPINE COMPLETE EXAM: XR LUMBAR SPINE COMPLETE CLINICAL HISTORY: time. Lower back pain. TECHNIQUE: 2D digital imaging was performed of the lumbar spine. Five images were obtained. AP, la teral, right oblique, left oblique and L5-S1 spot views were obtained. COMPARISON: No exams were available for comparison FINDINGS: BONES: No fracture or destructive lesion. Vertebral bodies are unremarkable. No facet hypertrophy elizabeth ntified. There is sclerosis seen at the sacroiliac joints bilaterally. DISKS: There is disc space narrowing at T12-L1. ALIGNMENT: Lumbar spinal alignment is within normal limits. No spondylolysis or spondylolisthesis. SOFT TISSUE: Normal. IMPRESSION: 1. No acute abnormality in the lumbar spine. 2. Sclerosis seen at the sacroiliac joints bilaterally. This may represent sacroiliitis. Please cor relate clinically. A nonemergent pelvic MRI may be obtained for further evaluation. DATA REPOSITORY: RADIATION DOSE DELIVERED:
--- NOTE | 2023-02-18 16:00 | ED.GENADUL_ITS ---
Discharge Plan Disposition Patient Disposition: Home Condition: Stable Discharge Details Clinical Impression: Sacroiliitis, Lumbago with sciatica, right side Primary Care Provider: Jose Antonio Tovar ED Provider: Charlotte Simpson Home Meds and New Rx's Prescriptions: No Action pantoprazole [Protonix] 20 mg tablet,delayed release (DR/EC) 20 mg PO DAILY Qty: 30 3RF norethindrone acetate [Aygestin] 5 mg tablet 5 mg PO BID Qty: 30 1RF Patient Comments: not taking trazodone 50 mg tablet 50 tab PO QHS Patient Comments: TAKE 1 TABLET BY MOUTH EVERY NIGHT NEEDED FOR INSOMNIA methadone 10 mg/mL Concentrate 90 mg PO DAILY Rx Instructions: DOSE VERIFIED WITH [facility] 04/07/2022 propranolol 10 mg tablet 10 mg PO PRN PRN Patient Comments: TAKE 1 TABLET BY MOUTH THREE TIMES DAILY NEEDED FOR ANXIETY prazosin 1 mg capsule 1 mg PO HS Patient Comments: TAKE 1 CAPSULE BY MOUTH AT BEDTIME lithium carbonate 300 mg Capsule 300 mg PO TID Discharge Instructions Instructions: Low Back Strain (ED) Additional Instructions: Please take Tylenol or Ibuprofen with food every 4-6 hours as needed for pain and swelling. X-rays show you do have some inflammation in your sacral joints. Physical therapy may help improve this. You were given a referral. Please call the number on the referral page to make an appointment. Alternate ice and heat. You may also use lidocaine patches to the affected areas which she can get [id number]. Take the muscle relaxers as directed these may make you sleepy. Stand Alone Forms: Physical Therapy Referral, Work Release Referrals: Jose Antonio Tovar [Primary Care Provider] - 1 week Discharge Data Discharge Date/Time-TO BE ENTERED AT DEPARTURE: 02/18/23 17:07 Medical Decision Making 33-year-old female presents to the ER with right lower lumbar pain with which began yesterday after some heavy lifting. Now she has radiation down her right buttock into her right anterior thigh. Denies any loss of bowel or bladder control denies any saddle anesthesia. X-ray L-spine ordered, lidocaine patch, ibuprofen and Flexeril 10 mg, patient denies any chance of reports history of tubal ligation. X-rays show sacroiliitis. Patient was given Flexeril 3 tablets to go instructed to continue taking Tylenol ibuprofen. Alternate ice and heat. Discussed tricked return instructions. Physical therapy referral also given for patient. This text was generated using [employer] [place] dictation system, please disregard any oddities of phrase or misspellings. Imaging Data Radiologic Study: Imaging: X-Ray Radiologist's impression: TECHNIQUE: Imaging protocol: Radiologic exam of the lumbosacral spine. Views: 4 or 5 views. COMPARISON: No relevant prior studies available. FINDINGS: Bones/joints: Five lumbar type vertebral bodies. No acute fracture or static listhesis. Vertebral body heights and intervertebral disc spaces appear maintained. Increased sclerosis along the sacroiliac joints. Soft tissues: Unremarkable. IMPRESSION: SI joint sclerosis suggesting sequelae of sacroiliitis. If there is concern for acute sacroiliitis consider further evaluation with nonemergent pelvic MRI. Thank you for allowing us to participate in the care of your patient. Dictated and Authenticated by: Vinay Dorado MD [facility] General Mode of arrival: ambulatory . Date/Time Provider Initiated Documentation: 02/18/23 15:42 . Limitations to Documentation: no limitations . Information obtained by: patient, RN notes reviewed and old records reviewed . HPI Narrative: 33-year-old female presents to the ER with right lower lumbar pain with which began yesterday after some heavy lifting. Now she has radiation down her right buttock into her right anterior thigh. Denies any loss of bowel or bladder control denies any saddle anesthesia. She has not taken anything for the pain prior to arrival. No history of lumbar spine surgeries. She does have a past medical history of PTSD, anxiety depression opioid abuse. Related Data Home Medications Medication Instructions Recorded Confirmed pantoprazole 20 mg tablet,delayed 20 mg PO DAILY #30 tabs 09/13/19 02/18/23 release (Protonix) norethindrone acetate 5 mg tablet 5 mg PO BID #30 tabs 03/30/20 01/15/23 (Aygestin) trazodone 50 mg tablet 50 tab PO QHS 04/06/22 02/18/23 methadone 10 mg/mL oral concentrate 90 mg PO DAILY 04/07/22 02/18/23 prazosin 1 mg capsule 1 mg PO HS 04/07/22 02/18/23 propranolol 10 mg tablet 10 mg PO PRN PRN 04/07/22 02/18/23 lithium carbonate 300 mg capsule 300 mg PO TID 04/08/22 02/18/23 Previous Rx's Medication Instructions Recorded pantoprazole 20 mg tablet,delayed 20 mg PO DAILY #30 tabs 09/13/19 release (Protonix) norethindrone acetate 5 mg tablet 5 mg PO BID #30 tabs 03/30/20 (Aygestin) Allergies Allergy/AdvReac Type Severity Reaction Status Date / Time No Known Drug Allergies Allergy Verified 02/18/23 15:37 General Stated Complaint: Nk/Back Pain LISA: 4 Review of Systems All systems reviewed & are unremarkable except as noted in HPI and below Musculoskeletal Musculoskeletal: Reports as per HPI, Reports abnormal gait, Reports back pain and Reports radiating pain into limb Neurologic Neurologic: Reports abnormal gait PFSH All Active Problems (Updated 02/18/23 @ 16:55 by Charlotte Simpson NP) Sacroiliitis (Acute) Lumbago with sciatica, right side (Acute) PTSD (post-traumatic stress disorder) (Acute) Post-operative state (Acute) Non-reassuring electronic monitoring tracing (Acute) IUGR (intrauterine growth restriction) (Acute) ASCUS (atypical squamous cells of undetermined significance) on gynecologic Papanicolaou smear complicating , antepartum (Acute) Nausea & vomiting (Acute) zofran recommended and may take phenergan at night if desired. Call if not effective. I recommended 4 mg - 8 mg up to TID PRN. Opiate dependence (Acute) (Acute) Dating US scheduled and IOB visit. We discussed methadone use in and I advised her to continue current dose. I consulted with Dr. Lima who agrees with this. Sade was given the impression by the physician in the ED that she should decrease methadone dose in . We discussed increased chance of cravings and withdrawal symptoms in . She will also discuss her dosing at her next [facility] visit. Depression (Chronic) Surgical History Appendectomy Tonsillectomy Family History Mother Hyperlipidemia Social History Smoking/Tobacco Use Status: Current every day Smoking risk assessment performed?: Yes Alcohol Intake: never Drug use: Current Sobriety Substance use type: former substance user and marijuana Details: on methadone, marijuana daily Do you feel safe at home: Yes Do you feel safe in your relationship?: Yes History History 2 Para 1 Hx # Term Pregnancies 1 Multiple births Hx # Pregnancies 1 Ectopic pregnancies AB induced Hx Number of Living Children 2 AB spontaneous Past Pregnancies Del. Date GA/Weeks # Preg Succ Route Wgt Sex Labor Lgth Anesth esia Location Prov [facility] 08/06/09 37 vaginal 2012.816 g Female [facility] 12/14/19 37 No 1700.[address] [facility] Delivery Date: 08/06/09 Last Updated by: Noris Bro CNM IOL for oligohydramnios, SGA baby Delivery Date: 12/14/19 Last Updated by: Alida Mireles LPN Reason for induction Growth Retardation Exam Back/Spine/Pelvis Back: no CVA tenderness Cervical Spine: normal cervical lordosis Thoracic/Lumbar Spine: thoracic and lumbar spine normal to inspection, paraspinal tenderness and lumbar spinal tenderness Course Vital Signs Vital signs: Vital Signs Temperature 36.3 C L 02/18/23 15:33 Pulse 68 02/18/23 15:33 Respiratory Rate 14 02/18/23 15:33 Blood Pressure 106/69 02/18/23 15:33 Pulse Oximetry 97 02/18/23 15:33 Temperature 36.3 C L 02/18/23 15:33 Temperature Source Skin 02/18/23 15:33 Pulse 68 02/18/23 15:33 Respiratory Rate 14 02/18/23 15:33 Respiratory Effort Normal 02/18/23 15:39 Blood Pressure 106/69 02/18/23 15:33 Blood Pressure Position Sitting 02/18/23 15:33 Pulse Oximetry 97 02/18/23 15:33 Oxygen Delivery Method Room Air 02/18/23 15:33 Oxygen Flow Rate 0 02/18/23 15:33 Pain Level 7 02/18/23 15:33 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
[2023-02-18] MEDS: Ibuprofen 800 MG TAB PO (16:10)
[2023-02-18] MEDS: Cyclobenzaprine 10 MG TAB PO (16:10)
[2023-02-18] MEDS: Lidocaine 5% Patch 1 PATCH TP (16:28)
--- NOTE | 2023-02-18 16:48 | DI.VRAD_ITS ---
PROCEDURE INFORMATION: Exam: XR Lumbosacral Spine Exam date and time: 02/18/2023 4:16 PM Age: 33 years old Clinical indication: Other: Lower back pain TECHNIQUE: Imaging protocol: Radiologic exam of the lumbosacral spine. Views: 4 or 5 views. COMPARISON: No relevant prior studies available. FINDINGS: Bones/joints: Five lumbar type vertebral bodies. No acute fracture or static listhesis. Vertebral body heights and intervertebral disc spaces appear maintained. Increased sclerosis along the sacroiliac joints. Soft tissues: Unremarkable. IMPRESSION: SI joint sclerosis suggesting sequelae of sacroiliitis. If there is concern for acute sacroiliitis consider further evaluation with nonemergent pelvic MRI. Dictated and Authenticated by: Vinay Dorado MD. Ordering:MARILYN Porter MD
[2023-02-18] MEDS: Cyclobenzaprine 10 MG TAB, 3 TABS/BTL PO (17:01)
== END 2023-02-18 17:07 | disposition home or self-care (01) ==
PROVIDERS: Emergency Provider Registered Nurse Emergency; PCP Family Medicine
DX: M46.1 Sacroiliitis, not elsewhere classified (principal); M54.41 Lumbago with sciatica, right side; X50.0XXA Overexertion from strenuous movement or load, initial encounter
CPT/HCPCS: 99283; 72110; 99284

== ENCOUNTER 2023-02-20 15:01 | Emergency (ER) | payer MEDICAID, SELFPAY ==
[2023-02-20 15:12] VITALS: BP 96/70; RESP 20; TEMP 36.8; O2SAT 98
[2023-02-20 17:40] VITALS: BP 102/69; PULSE 67; RESP 18; TEMP 36.8; O2SAT 96
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
[2023-02-20] MEDS: Methocarbamol 750 MG TAB PO (17:48)
[2023-02-20] MEDS: Lidocaine 5% Patch 1 PATCH TP (17:48)
[2023-02-20] MEDS: predniSONE 20 MG TAB 40 MG PO (17:49)
== END 2023-02-20 17:58 | disposition home or self-care (01) ==
PROVIDERS: Emergency Provider Registered Nurse Emergency; PCP Family Medicine
DX: M54.41 Lumbago with sciatica, right side (principal)
CPT/HCPCS: 99283; 99284; J7512

== ENCOUNTER 2023-04-19 12:08 | Outpatient (CLI) | payer MEDICAID, SELFPAY ==
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
== END 2023-04-19 12:28 ==
LOC: DI 12:09
PROVIDERS: PCP Family Medicine; Visit Provider Physician Assistant Medical
DX: M79.645 Pain in left finger(s) (principal)
CPT/HCPCS: 73140

== ENCOUNTER 2023-06-17 23:21 | Emergency (ER) | payer MEDICAID, SELFPAY ==
[2023-06-17 23:26] VITALS: BP 125/82; PULSE 84; RESP 24; TEMP 37.3; O2SAT 98
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
[2023-06-17] MEDS: Acetaminophen 500 MG TAB 1000 MG PO (23:40)
[2023-06-17] MEDS: Ibuprofen 800 MG TAB PO (23:41)
[2023-06-17] MEDS: Propranolol 10 MG TAB PO (23:50)
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
== END 2023-06-18 00:45 | disposition home or self-care (01) ==
PROVIDERS: Emergency Provider Student in an Organized Health Care Education/Training Program; PCP Family Medicine
DX: S63.601A Unspecified sprain of right thumb, initial encounter (principal); X58.XXXA Exposure to other specified factors, initial encounter
CPT/HCPCS: 99283; 73140

== ENCOUNTER 2023-07-04 12:32 | Emergency (ER) | payer MEDICAID, SELFPAY | END 2023-07-04 13:36 | disposition left against medical advice (07) | PROVIDERS: PCP Family Medicine | DX: Z53.21 Procedure and treatment not carried out due to patient leaving prior to being seen by health care provider (principal) ==

== ENCOUNTER 2023-07-14 18:26 | Emergency (ER) | payer MEDICAID, SELFPAY | END 2023-07-14 19:48 | disposition left against medical advice (07) | PROVIDERS: PCP Family Medicine | DX: Z53.21 Procedure and treatment not carried out due to patient leaving prior to being seen by health care provider (principal) ==

== ENCOUNTER 2023-07-22 16:24 | Emergency (ER) | payer MEDICAID, SELFPAY ==
[2023-07-22 16:29] VITALS: BP 101/41; PULSE 63; RESP 20; TEMP 36.8; O2SAT 97
== END 2023-07-22 18:34 | disposition left against medical advice (07) ==
PROVIDERS: PCP Family Medicine
DX: Z53.21 Procedure and treatment not carried out due to patient leaving prior to being seen by health care provider (principal)

== ENCOUNTER 2023-08-22 13:35 | Outpatient (REF) | payer MEDICAID, SELFPAY ==
[2023-08-22 15:19] LABS: Abs Immature Grans 0.04 10^3/uL (0.0-0.06); Absolute Basophil Count 0.03 10^3/uL (0.0-0.2); Absolute Eosinophil Count 0.13 10^3/uL (0.0-0.7); Absolute Lymphocyte Count 2.69 10^3/uL (1.2-3.4); Absolute Monocyte Count 0.73 10^3/uL (0.1-0.8); Absolute Neutrophil Count 6.93 10^3/uL (1.2-6.7); Basophils % 0.3; Eosinophils % 1.2; HCT 41.4 % (36.0-46.0); HGB 13.4 g/dL (11.2-15.7); Immature Grans % 0.4; Lymphocytes % 25.5; MCH 29.3 pg (27.0-33.0); MCHC 32.4 % (32.0-36.0); MCV 91 fL (80-95); MPV 9.9 fL (8.0-11.0); Monocytes % 6.9; Neutrophils % 65.7; Platelet Count 284 10^3/uL (130-400); RBC 4.57 10^6/uL (3.93-5.22); RDW 14.2 % (11.7-14.6); RDW-SD 47.3 fL; WBC 10.55 10^3/uL (4.4-10.8)
[2023-08-22 15:38] LABS: Lithium 0.6 mmol/l (0.6-1.2)
[2023-08-22 15:48] LABS: ALT 21 U/L (14-59); AST 11 U/L (15-37); Albumin 3.5 g/dL (3.4-5.0); Alkaline Phosphatase 83 U/L (46-116); Anion Gap 7.7 mmol/L (3-11); BUN 8 mg/dL (7-18); Bilirubin, Total 0.3 mg/dL (0.2-1.0); CO2 28.3 mmol/L (21.0-32.0); CREATININE 0.9 mg/dL (0.55-1.02); Calcium 9.5 mg/dL (8.5-10.1); Chloride 105 mmol/L (98-107); Glucose 99 mg/dL (74-106); Potassium 4.6 mmol/L (3.5-5.1); Sodium 141 mmol/L (136-145); TSH (W/Ref FT4) 1.66 uIU/mL (0.36-3.74); Total Protein 6.5 g/dL (6.4-8.2)
== END 2023-08-22 13:36 | disposition home or self-care (01) ==
LOC: NCHCN 13:35
PROVIDERS: PCP Family Medicine; Visit Provider Family Medicine
DX: Z51.81 Encounter for therapeutic drug level monitoring (principal); F31.9 Bipolar disorder, unspecified; R42 Dizziness and giddiness
CPT/HCPCS: 80053; 80178; 84443; 85025

== ENCOUNTER 2024-03-27 12:29 | Outpatient (REF) | payer MEDICAID, SELFPAY ==
[2024-03-27 20:00] LABS: Lithium 0.3 mmol/L (0.6-1.2)
[2024-03-27 20:05] LABS: Hemoglobin A1C 5.5 % (<5.7)
== END 2024-03-27 12:30 | disposition home or self-care (01) ==
LOC: NCHCN 12:29
PROVIDERS: PCP Family Medicine; Visit Provider Family Medicine
DX: Z13.1 Encounter for screening for diabetes mellitus (principal); Z51.81 Encounter for therapeutic drug level monitoring
CPT/HCPCS: 80178; 83036

== ENCOUNTER 2024-07-30 12:59 | Outpatient (REF) | payer MEDICAID, SELFPAY ==
[2024-07-31 10:21] LABS: Hepatitis B Surface Ag Negative (Negative)
[2024-07-31 10:59] LABS: Hepatitis C Ab w Rflx HCV PCR Negative (Negative)
== END 2024-07-30 13:00 | disposition home or self-care (01) ==
LOC: NCHCN 12:59
PROVIDERS: PCP Family Medicine; Visit Provider Student in an Organized Health Care Education/Training Program
DX: R74.01 Elevation of levels of liver transaminase levels (principal)
CPT/HCPCS: 86803; 87340

== ENCOUNTER 2025-08-04 12:21 | Outpatient (REF) | payer MEDICAID, SELFPAY ==
[2025-08-04 15:44] LABS: HCT 41.9 % (36.0-46.0); HGB 13.8 g/dL (11.2-15.7); MCH 30.1 pg (27.0-33.0); MCHC 32.9 % (32.0-36.0); MCV 91 fL (80-95); MPV 10.4 fL (8.0-11.0); Platelet Count 261 10^3/uL (130-400); RBC 4.59 10^6/uL (3.93-5.22); RDW 12.8 % (11.7-14.6); RDW-SD 43.0 fL; WBC 13.49 10^3/uL (4.4-10.8)
[2025-08-04 16:00] LABS: Lithium 1.6 mmol/L (0.6-1.2)
[2025-08-04 16:18] LABS: Folate 3.5 ng/mL (8.6-20.0); TSH (W/Ref FT4) 1.73 uIU/mL (0.36-3.74); Vitamin B12 1041 pg/mL (193-986)
== END 2025-08-04 12:22 | disposition home or self-care (01) ==
LOC: NCHCN 12:21
PROVIDERS: Family Medicine; PCP Family Medicine; Visit Provider Internal Medicine
DX: R20.2 Paresthesia of skin (principal); R53.83 Other fatigue; Z51.81 Encounter for therapeutic drug level monitoring
CPT/HCPCS: 85027; 80178; 82607; 82746; 84443